=== PATIENT | male | born 1965 | race Caucasian/White ===

== ENCOUNTER 2019-12-19 12:27 | Inpatient (IN) | payer OTHER, SELFPAY ==
[2019-12-19] VITALS (9 sets, daily range): BP systolic 153–178; BP diastolic 86–108; PULSE 64–90; RESP 17–20; TEMP 36.5–36.8; O2SAT 91–96; BMI 50.8
--- NOTE | ~2019-12-19 | US_ITS ---
EXAMINATION: US venous doppler LE EXAM DATE: 12/20/2019 15:14 INDICATION: DVT. TECHNIQUE: Multiple grayscale, color flow and Doppler images of the lower extremity deep venous syste ms bilaterally were obtained and reviewed. Comparison is made to prior examination from 11/16/2018. FINDINGS: RIGHT SIDE Common femoral: -------- Normal. Profunda femoral: ------- Normal. Femoral: Normal. Popliteal: Thrombosed. Posterior tibial: --------- Normal. Peroneal: Normal. Gastrocnemius: Not visualized. Soleus: Not visualized. Greater saphenous: ----- Normal. Lesser saphenous: ------ Not visualized. LEFT SIDE Common femoral: -------- Normal. Profunda femoral: ------- Normal. Femoral: Normal. Popliteal: Normal. Posterior tibial: --------- Normal. Peroneal: Normal. Gastrocnemius: Not visualized. Soleus: Not visualized. Greater saphenous: ----- Normal. Lesser saphenous: ------ Not visualized. IMPRESSION: 1. Positive for right popliteal DVT. 2. No left DVT. I discussed DVT with Nikki Walton PA-C at 12/20/2019 15:17 CDT . Reviewed, dictated and finalized at location B.
--- NOTE | ~2019-12-19 | CT_ITS ---
EXAMINATION: CTA chest PE protocol DATE: 12/21/2019 11:42 INDICATION: Deep venous thrombosis. Exacerbation of congestive heart failure TECHNIQUE: Computed tomography angiography (CTA) of the chest was performed with 100 mL Omnipaque-350 intravenous contrast timed to evaluate the pulmonary arteries. Coronal maximum intensity projection 3D-reconstructions were created by the technologist. Automated exposure control and iterative reconst ruction technique were employed. Exam dose: 887.11 mGy-cm total exam DLP. COMPARISON: 12/18/[address] chest with IV contrast FINDINGS: There is diagnostic contrast enhancement of the pulmonary arteries and no evidence of pulmo nary embolism. No thoracic aortic aneurysm or dissection is detected. No hilar or mediastinal mass lesion or lymphadenopathy. Cardiomegaly. No pericardial or pleural effusion. No pulmonary infiltrate or consolidation. Small benign-appearing fissural nodes along the left greater fissure. Small calcified pulmonary granuloma, left lower lobe. Calcified splenic granulomas. IMPRESSION: No evidence of pulmonary embolism. Cardiomegaly Reviewed, dictated and finalized at Location [facility]. Reviewed, dictated and finalized at location A.
--- NOTE | ~2019-12-19 | XR_ITS ---
EXAMINATION: XR chest 2V DATE: 12/19/2019 12:55 INDICATION: Dyspnea on exertion. TECHNIQUE: Frontal and lateral views of the chest were obtained. COMPARISON: Chest CT 11/17/2018, chest 2 views 11/16/2018 FINDINGS: There is no pneumonia, pleural effusion, or pneumothorax cardiomegaly is noted. Calcified r ight hilar lymph nodes are consistent with old granulomatous disease. IMPRESSION: 1. Cardiomegaly. Reviewed, dictated and finalized at location A. IMPRESSION: 1. Cardiomegaly.
--- NOTE | 2019-12-19 12:44 | ECG_ITS ---
Measurements Intervals [employer] Rate: 82 P: 33 MO: 160 QRS: -30 QRSD: 92 T: 35 QT: 378 QTc: 442 Interpretive Statements SINUS RHYTHM POSSIBLE LEFT ATRIAL ENLARGEMENT INFERIOR INFARCT, AGE INDETERMINATE ANTEROSEPTAL INFARCT, AGE INDETERMINATE BASELINE ARTIFACT- I, III, AVR, AVL, AVF ABNORMAL ECG Electronically Signed On 12-19-2019 13:02:49 CDT by Vinny Mclaughlin D.O.
--- NOTE | 2019-12-19 12:44 | ED.GENADULT ---
HPI - General Adult General Chief complaint: Shortness of Breath/Dyspnea Stated complaint: sent by manager database administration Time Seen by Provider: 12/19/19 12:40 Source: patient Mode of arrival: ambulatory Limitations: no limitations History of Present Illness HPI narrative: Pt is a 54 y/o male who presents to the ED, secondary to his manager database administration recommending he come to the ED yesterday. Pt saw his manager database administration yesterday and was told that he had fluid in his lungs and to come to the ED. Pt was unable to come yesterday so he came today. Pt reports generalized swelling, but denies CP or SOB. He does not know the name of his manager database administration. MD complaint: [facility] recommendation Onset (ago): day(s) (yesterday) Associated symptoms: other (swelling) Treatments prior to arrival: none Related Data Home Medications Medication Instructions Recorded Confirmed hydrochlorothiazide 12/19/19 lisinopril 12/19/19 metoprolol tartrate 12/19/19 Allergies Allergy/AdvReac Type Severity Reaction Status Date / Time No Known Allergies Allergy Unverified 11/16/18 14:08 Review of Systems Review of Systems: All systems reviewed & are unremarkable except as noted in HPI and below Cardiovascular: Cardiovascular: Denies chest pain and Reports edema Respiratory: Respiratory: Denies dyspnea PMFSH Past Medical History Medical History (Updated 12/19/19 @ 14:50 by Marcus Madrid DO) Back injury CHF (congestive heart failure) High cholesterol HTN (hypertension) Nasal fracture Surgical History Surgical History (Updated 12/19/19 @ 12:57 by Von Mcgovern) No significant past surgical history Social History Social History (Updated 12/19/19 @ 12:57 by Von Mcgovern) Smoking packs per day: 1 Smoking cigarettes per day: 20.0 Years smoked: 30 Smoking pack-years: 30.00 Gender identity (if verbalized by the patient): Male Exam Narrative: Exam Narrative: APPEARANCE: No acute distress, nontoxic, resting in bed EYES: EOMI HEENT: Normocephalic, atraumatic, OMM RESPIRATORY: No respiratory distress Clear to auscultation bilaterally with no rhonchi wheezing or rales. CARDIOVASCULAR: Regular rate and rhythm without murmurs rubs or gallops. ABDOMINAL: Soft, nontender, nondistended, no rebound or guarding MUSCULOSKELETAl: Moves all extremities. No clubbing, cyanosis 4+ edema the bilateral lower extremities NEURO: Awake and alert. Following commands, speech normal, no focal deficits SKIN:: Warm, dry. No rashes lesions or abrasions PSYCHIATRIC: Normal affect/mood, Course Course Emergency Course: Discussed with patient and family results of workup and diagnosis. Discussed need for admission. Patient and family understand and agree to current treatment plan Consultations Consultation #1: Discussed case with LALIT Turner for the hospitalist. Accepted admission. Date: 12/19/19 Time: 14:30 Vital Signs Vital signs: Vital Signs Temperature 97.9 F 12/19/19 12:37 Pulse Rate 88 12/19/19 12:37 Respiratory Rate 18 12/19/19 12:37 Blood Pressure 153/99 H 12/19/19 12:37 Pulse Oximetry 95 12/19/19 12:37 Temperature 97.9 F 12/19/19 12:37 Pulse Rate 90 12/19/19 12:37 Respiratory Rate 18 12/19/19 12:37 Blood Pressure 153/99 H 12/19/19 12:37 Pulse Oximetry 95 12/19/19 12:37 Medical Decision Making Vital Signs Vital Signs: Vital Signs Temperature 97.9 F 12/19/19 12:37 Pulse Rate 88 12/19/19 12:37 Respiratory Rate 18 12/19/19 12:37 Blood Pressure 153/99 H 12/19/19 12:37 Pulse Oximetry 95 12/19/19 12:37 Temperature 97.9 F 12/19/19 12:37 Pulse Rate 90 12/19/19 12:37 Respiratory Rate 18 12/19/19 12:37 Blood Pressure 153/99 H 12/19/19 12:37 Pulse Oximetry 95 12/19/19 12:37 Lab Data Result diagrams: 12/19/19 13:18 12/19/19 13:18 Labs: Lab Results 12/19/19 12/19/19 12/19/19 Range/Units 13:18 13:18 14:32 WBC 9.6 (4.5-10.0)
[2019-12-19 13:25] LABS: Basophils Absolute Auto 0.1 K/mm3 (0.0-0.1); Basophils Percent Auto 0.6 % (0.2-1.2); Eosinophils Absolute Auto 0.1 K/mm3 (0-0.3); Hematocrit 56.1 % (42.0-52.0); Hemoglobin 17.5 g/dL (14.0-18.0); Immature Granulocyte Absolute 0.02 K/mm3 (0.00-0.031); Immature Granulocyte Percent A 0.2 % (0-0.5); Lymphocytes Absolute Auto 1.09 K/mm3 (0.9-3.2); Lymphocytes Percent Auto 11.3 % (18.3-44.2); Mean Corpuscular HGB Conc 31.2 g/dl (32-36); Mean Corpuscular Hemoglobin 29.2 pg (26-34); Mean Corpuscular Volume 93.5 fl (80-100); Mean Platelet Volume 11.3 fl (7.4-10.4); Monocytes Absolute Auto 0.9 K/mm3 (0.1-0.6); Monocytes Percent Auto 9.2 % (2.6-8.5); Neutrophils Absolute Auto 7.5 K/mm3 (1.3-6.7); Neutrophils Percent Auto 77.7 % (45.5-73.1); Platelet Count Result 250 k/mm3 (150-375); Red Cell Distribution Width 15.6 % (11.5-14.5); White Blood Count 9.6 K/mm3 (4.5-10.0)
[2019-12-19 13:38] LABS: Blood Urea Nitrogen 22 mg/dL (9-20); Calcium 9.2 mg/dL (8.4-10.2); Carbon Dioxide 34 mmol/L (22-30); Chloride 98 mmol/L (98-107); Estimated CRCL calculation 155 ml/min; Estimated Glomerular Filt Rate > 60; Glucose 96 mg/dL (75-110); Potassium 4.1 mmol/L (3.4-5.0); Sodium 138 mmol/L (137-145)
[2019-12-19 13:51] LABS: NT Pro B Type Natriuretic Pept 1080 PG/ML (5-100)
[2019-12-19] MEDS: ASPIRIN 81 MG CHEWABLE TABLET 324 MG PO (13:57)
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
[2019-12-19 14:47] LABS: INR 1.1; Prothrombin Time 13.8 Seconds (11.1-14.7)
[2019-12-19 14:48] LABS: Partial Thromboplastin Time 25.7 SECONDS (22.3-36.8)
[2019-12-19] MEDS: FUROSEMIDE INJ 40 MG/4 ML VIAL IV PUSH (14:55)
--- NOTE | 2019-12-19 17:33 | ADMGEN ---
This patient, Jb Gamboa, was admitted to IMU Room 202-. Patient/family oriented to hospital policies and general routines including ID bracelet, bed and alarms, visiting hours, pain management, procedures, bathroom and other care routines, personal items, smoking policy, room service/diet, and visiting hours. Valuables list has been completed. Information on how to activate the Rapid Response Team has been discussed. Patient/Family are encouraged to report perceived risks to care and to ask questions if they do not understand what they are told or what they should do.
[2019-12-19 18:43] LABS: Troponin I 0.038 ng/mL (0.000-0.034)
[2019-12-19 21:24] LABS: Troponin I 0.034 ng/mL (0.000-0.034)
[2019-12-20] VITALS (17 sets, daily range): BP systolic 134–161; BP diastolic 57–109; PULSE 62–86; RESP 16–25; TEMP 36.1–36.7; O2SAT 90–95
[2019-12-20] MEDS: NICOTINE (*PBKC) 21 MG PATCH 1 PATCH TRANSDERM ×2 (01:00→09:00)
[2019-12-20 04:41] LABS: Basophils Absolute Auto 0.1 K/mm3 (0.0-0.1); Eosinophils Absolute Auto 0.2 K/mm3 (0-0.3); Eosinophils Percent Auto 1.7 % (0-4.4); Hematocrit 56.3 % (42.0-52.0); Hemoglobin 17.8 g/dL (14.0-18.0); Immature Granulocyte Absolute 0.11 K/mm3 (0.00-0.031); Immature Granulocyte Percent A 1.3 % (0-0.5); Lymphocytes Absolute Auto 1.32 K/mm3 (0.9-3.2); Lymphocytes Percent Auto 15.2 % (18.3-44.2); Mean Corpuscular HGB Conc 31.6 g/dl (32-36); Mean Corpuscular Hemoglobin 28.9 pg (26-34); Mean Corpuscular Volume 91.5 fl (80-100); Mean Platelet Volume 11.6 fl (7.4-10.4); Monocytes Percent Auto 11.2 % (2.6-8.5); Neutrophils Percent Auto 69.6 % (45.5-73.1); Nucleated Red Blood Cells Absolute Auto 0.1 K/mm3 (0.0-0.012); Nucleated Red Blood Cells Perc 0.8 % (0.0-0.2); Platelet Count Result 257 k/mm3 (150-375); Red Blood Count 6.15 M/mm3 (4.6-6.20); Red Cell Distribution Width 16.4 % (11.5-14.5); White Blood Count 8.7 K/mm3 (4.5-10.0)
[2019-12-20] MEDS: METOPROLOL TARTRATE 25 MG TABLET PO ×3 (05:11→16:51)
[2019-12-20 06:00] LABS: LDL Cholesterol Direct 126 mg/dL
[2019-12-20 06:03] LABS: Alanine Aminotransferase 46 U/L (4-50); Albumin Level 3.8 g/dL (3.5-5.1); Alkaline Phosphatase 91 U/L (38-126); Aspartate Amino Transferase 45 U/L (17-59); Blood Urea Nitrogen 22 mg/dL (9-20); Calcium 9.2 mg/dL (8.4-10.2); Carbon Dioxide 32 mmol/L (22-30); Chloride 98 mmol/L (98-107); Cholesterol 172 mg/dL (0-200); Estimated CRCL calculation 119 ml/min; Estimated Glomerular Filt Rate > 60; Glucose 91 mg/dL (75-110); HDL Direct 28 mg/dL; Potassium 4.5 mmol/L (3.4-5.0); Sodium 135 mmol/L (137-145); Triglycerides 141 mg/dL (<150)
[2019-12-20] MEDS: FUROSEMIDE INJ 40 MG/4 ML VIAL IV PUSH ×2 (08:58→16:51)
[2019-12-20] MEDS: ENOXAPARIN 40 MG/0.4 ML SYRINGE SUB-Q (08:58)
[2019-12-20] MEDS: hydroCHLOROthiazide 12.5 MG CAPSULE PO (08:59)
[2019-12-20] MEDS: lisinopriL 20 MG TABLET 40 MG PO (08:59)
--- NOTE | 2019-12-20 10:21 | PM.IMPN ---
Progress Note: A&P Assessment and Plan (1) Congestive heart failure: Qualifiers: Heart failure chronicity: acute Heart failure type: diastolic Qualified Code(s): I50.31 - Acute diastolic (congestive) heart failure Code(s): I50.9 - Heart failure, unspecified Status: Acute Assessment and Plan: Acute on chronic diastolic CHF with significant lower extremity edema. Continue diuresis with IV Lasix BID, monitor fluid status closely. Monitor electrolytes. [facility] who noted he recently had echocardiogram this week so we will not repeat today; will review report once faxed from the office. (2) DVT (deep venous thrombosis): Qualifiers: DVT location: lower extremity Affected thrombotic vein of extremity: popliteal Chronicity: acute Laterality: right Qualified Code(s): I82.431 - Acute embolism and thrombosis of right popliteal vein Code(s): I82.409 - Acute embolism and thrombosis of unspecified deep veins of unspecified lower extremity Status: Acute Assessment and Plan: Venous Doppler reveals right lower extremity popliteal DVT. Started on therapeutic dose of Lovenox. Will check with care coordination for pricing on NOAC. (3) Hypertension: Qualifiers: Hypertension type: essential hypertension Qualified Code(s): I10 - Essential (primary) hypertension Code(s): I10 - Essential (primary) hypertension Status: Chronic Assessment and Plan: Elevated blood pressures not at goal. May improve with diuresis. His home metoprolol was doubled. Unsure if he has been taking his medications directly (says he was taking metoprolol once daily instead of BID). Continue lisinopril, HCTZ, and metoprolol and monitor BPs. (4) Elevated troponin: Code(s): R79.89 - Other specified abnormal findings of blood chemistry Status: Acute Assessment and Plan: Troponin mildly elevated, flat profile. Stable, no chest pain. No ACS suspected. Will review echocardiogram results requested. (5) Tobacco dependence: Code(s): F17.200 - Nicotine dependence, unspecified, uncomplicated Status: Chronic Assessment and Plan: Educated on smoking cessation. Subjective Date/time seen: 12/20/19 0900 Interval history: Mr. Gamboa is a 54yo M admitted for CHF exacerbation. 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 He reports his legs have been this swollen for 1 month. He denies missing any doses of his medications. He denies any chest pain or feeling short of breath. He denies nausea or vomiting. Edit: Contacted [facility] office who tells me he last saw Dr Garcia 11/28/19, was not seen this week. Patient may have been at PCPs office? Dr Garcia's office faxing last office note. Review of Systems Review of Systems: Narrative: Twelve systems were reviewed with pertinent positives and negatives as per HPI. Exam Narrative: Exam Narrative: General: Obese male resting in bed in no acute distress. HEENT: Normocephalic, EOMI, oral mucosa tacky. Cardiovascular: Rate and rhythm regular. Respiratory: Diffuse coarse expiratory breath sounds without crackles; Respirations even and nonlabored. Abdomen: Soft, protuberant, non-tender, bowel sounds present. Extremities: Peripheral pulses intact. 2 to 3+ pitting woody edema to bilateral lower extremities, erythematous, skin is dry. Neuro: No focal neurological deficits. Alert and oriented. Objective Data Vital Signs Vital Signs: Last Vital Signs Temp 97.7 F 12/20/19 08:54 Pulse 86 12/20/19 08:59 Resp 24 H 12/20/19 08:54 BP 134/57 L 12/20/19 08:54 Pulse Ox 92 12/20/19 08:54 Intake/Output Intake/Output: Intake & Output 12/17/19 12/18/19
--- NOTE | 2019-12-20 19:43 | PC.NURSE ---
This patient, Jb Gamboa, was transferred to [facility] on 12/20/19 at 1930. Personal belongings sent with patient. Belongings list checked and signed with receiving . Report given to ALEXANDER Servin. Appropriate documentation sent with patient.
[2019-12-20] MEDS: ENOXAPARIN 80 MG/0.8 ML SYRINGE 138 MG SUB-Q (21:51)
--- NOTE | 2019-12-20 22:54 | PCRCNOTE ---
PT REFUSED APNEA LINK. PT STATES THAT HE HAD A SLEEP STUDY LAST YEAR AND HE WON'T DO THIS ONE. RN SHANNAN CROOKS NOTIFIED, ORDER CANCELLED
[2019-12-21] VITALS (12 sets, daily range): BP systolic 114–150; BP diastolic 67–94; PULSE 66–94; RESP 16–20; TEMP 36.1–36.4; O2SAT 92–96
[2019-12-21 07:03] LABS: Blood Urea Nitrogen 24 mg/dL (9-20); Calcium 9.3 mg/dL (8.4-10.2); Carbon Dioxide 30 mmol/L (22-30); Chloride 98 mmol/L (98-107); Estimated CRCL calculation 117 ml/min; Estimated Glomerular Filt Rate > 60; Glucose 84 mg/dL (75-110); Potassium 4.5 mmol/L (3.4-5.0); Sodium 134 mmol/L (137-145)
[2019-12-21] MEDS: METOPROLOL TARTRATE 25 MG TABLET PO ×2 (08:17→16:32)
[2019-12-21] MEDS: lisinopriL 20 MG TABLET 40 MG PO (08:17)
[2019-12-21] MEDS: hydroCHLOROthiazide 12.5 MG CAPSULE PO (08:17)
[2019-12-21] MEDS: FUROSEMIDE INJ 40 MG/4 ML VIAL IV PUSH ×2 (08:17→16:32)
[2019-12-21] MEDS: ENOXAPARIN 80 MG/0.8 ML SYRINGE 138 MG SUB-Q (08:18)
[2019-12-21] MEDS: NICOTINE (*PBKC) 21 MG PATCH 1 PATCH TRANSDERM (08:19)
--- NOTE | 2019-12-21 11:00 | PM.IMPN ---
Progress Note: A&P Assessment and Plan (1) Congestive heart failure: Qualifiers: Heart failure chronicity: acute Heart failure type: diastolic Qualified Code(s): I50.31 - Acute diastolic (congestive) heart failure Code(s): I50.9 - Heart failure, unspecified Status: Acute Assessment and Plan: Acute on chronic diastolic CHF with significant lower extremity edema. Improving, continue diuresis with IV Lasix BID, monitor fluid status closely. Monitor electrolytes. Echocardiogram from last week note. Recommend he follow up with Dr Garcia as instructed. CHF teaching. Low sodium diet and fluid restriction. Patient has poor insight regarding his medical conditions despite repeat teaching. Echocardiogram 12/18/19: SUMMARY: Normal left ventricular systolic function. No focal wall motion abnormalities. Normal left ventricular size. Moderate concentric left ventricular hypertrophy. Impaired diastolic relaxation grade I. EF visually estimated 70-75%. Severe enlargement of right ventricle. Moderate right ventricular hypokinesis. Mild enlargement of left atrium. Peak gradient of 15.0 mmHg. Mean gradient of 9.0 mm Hg. Valve area of 2.47 cm2. Probable trileaflet aortic valve, although not all leaflets are visualized. Mild aortic valve regurgitation. Severe pulmonary hypertension based on right ventricular systolic pressure. Estimated peak RVSP is 70 mm Hg. Mild tricuspid regurgitation. Normal sinus rhythm. (2) DVT (deep venous thrombosis): Qualifiers: Affected thrombotic vein of extremity: popliteal Chronicity: acute DVT location: lower extremity Laterality: right Qualified Code(s): I82.431 - Acute embolism and thrombosis of right popliteal vein Code(s): I82.409 - Acute embolism and thrombosis of unspecified deep veins of unspecified lower extremity Status: Acute Assessment and Plan: Venous Doppler reveals right lower extremity popliteal DVT. Started on therapeutic dose of Lovenox. Xarelto approved - will start tonight and may be able to discharge in AM. CTA chest negative for PE. (3) Hypertension: Qualifiers: Hypertension type: essential hypertension Qualified Code(s): I10 - Essential (primary) hypertension Code(s): I10 - Essential (primary) hypertension Status: Chronic Assessment and Plan: Elevated BPs improved today, last 138/67. His home metoprolol was doubled. Unsure if he has been taking his medications directly (says he was taking metoprolol once daily instead of BID). Continue lisinopril, HCTZ, and metoprolol and monitor BPs. (4) Elevated troponin: Code(s): R79.89 - Other specified abnormal findings of blood chemistry Status: Acute Assessment and Plan: Troponin mildly elevated, flat profile. Stable, denies chest pain. No ACS suspected. (5) Tobacco dependence: Code(s): F17.200 - Nicotine dependence, unspecified, uncomplicated Status: Chronic Assessment and Plan: Educated on smoking cessation. Subjective Date/time seen: 12/21/19 0915 Interval history: Mr. Gamboa is a 54yo M admitted for acute right leg DVT and CHF exacerbation. He reports his legs have been this swollen for 1 month. He denies missing any doses of his medications. He denies any chest pain or feeling short of breath. He denies nausea or vomiting. Detailed discussion held with patient regarding his DVT and care coordination checking on Xarelto pricing. If he should need to be started on Coumadin due to insurance purposes, he will need to stay in the hospital until INR is therapeutic. Patient is insistent on discharging today. He is very concerned that he needs to shower and get clean clothes from his house and return. Discussed he will not be able to go home and return and ensured th
[2019-12-21] MEDS: RIVAROXABAN 15 MG TABLET PO (18:49)
--- NOTE | 2019-12-21 19:44 | PC.NURSE ---
Pt is demanding we discontinue the heart monitor, stated its been 3 days wearing it . He is stating the monitor is annoying him, and there is no reason for him to still need it. Even after discussion of purpose of the heart monitor the pt still demands I take it off. I told the pt I would chart his refusal and inform the night doctor.
[2019-12-22] VITALS: PULSE 65
[2019-12-22 04:00] VITALS: PULSE 86
[2019-12-22 05:41] LABS: Blood Urea Nitrogen 25 mg/dL (9-20); Calcium 9.2 mg/dL (8.4-10.2); Carbon Dioxide > 40 mmol/L (22-30); Chloride 93 mmol/L (98-107); Estimated CRCL calculation 117 ml/min; Estimated Glomerular Filt Rate > 60; Glucose 94 mg/dL (75-110); Magnesium 1.9 mg/dL (1.6-2.3); Sodium 136 mmol/L (137-145)
[2019-12-22 06:00] VITALS: BP 146/99; PULSE 89; RESP 16; TEMP 36.2; O2SAT 92
[2019-12-22] MEDS: NICOTINE (*PBKC) 21 MG PATCH 1 PATCH TRANSDERM (08:59)
[2019-12-22 09:00] VITALS: PULSE 78
[2019-12-22] MEDS: RIVAROXABAN 15 MG TABLET PO (09:00)
[2019-12-22] MEDS: FUROSEMIDE INJ 40 MG/4 ML VIAL IV PUSH (09:00)
[2019-12-22] MEDS: hydroCHLOROthiazide 12.5 MG CAPSULE PO (09:00)
[2019-12-22] MEDS: METOPROLOL TARTRATE 25 MG TABLET PO (09:00)
[2019-12-22] MEDS: lisinopriL 20 MG TABLET 40 MG PO (09:01)
--- NOTE | 2019-12-22 14:37 | PM.DS ---
DS: Diagnosis Admitting Diagnosis Admitting Diagnosis: Heart failure, unspecified Discharge Diagnosis (1) Congestive heart failure: Qualifiers: Heart failure chronicity: acute Heart failure type: diastolic Qualified Code(s): I50.31 - Acute diastolic (congestive) heart failure Code(s): I50.9 - Heart failure, unspecified Status: Acute Assessment and Plan: Date of Service 12/22/19: Mr. Gamboa is a 54yo M with morbid obesity, congestive heart failure and hypertension who presented to the emergency department for evaluation of lower extremity swelling and increased shortness of breath. He recently had outpatient echocardiogram performed, results noted below, and saw cardiology, Dr Garcia 11/28/19. He was noted to have significant bilateral lower extremity edema on arrival. He was treated for acute on chronic diastolic CHF and diuresed with IV lasix. Venous dopplers of lower extremities revealed a deep venous thrombosis to his right popliteal vein and he was started on therapeutic Lovenox. Case management checked insurance approval for Xarelto and he was transitioned to Xarelto 12/21/19. He had mildly elevated troponins with a flat profile 0.04 - 0.038 - 0.034. He had no chest pain, ACS not suspected. CTA chest showed no evidence of pulmonary embolism. His blood pressures were elevated on arrival but improved once his home antihypertensives were resumed - lisinopril, HCTZ, and metoprolol. He received CHF teaching and was educated on a low sodium diet. It is felt the patient has poor insight regarding his medical conditions despite repeat teaching. Dr Garcia's office note from 11/28/19 suggests 6 week follow up, and this was reiterated to the patient. He was discharged with oral furosemide 20mg daily and Xarelto. He was hemodynamically stable for discharge 12/22/19 and instructed to follow up with Dr Garcia and PCP. Repeat BMP in 1 week since Lasix was added to monitor electrolytes and renal function. Acute on chronic diastolic CHF with significant lower extremity edema. Improved with diuresis with 40mg IV Lasix BID while monitoring electrolytes. Discharged with 20mg daily oral Lasix. Echocardiogram from last week noted. Recommend he follow up with Dr Garcia as instructed. CHF teaching. Low sodium diet and fluid restriction. Echocardiogram 12/18/19: SUMMARY: Normal left ventricular systolic function. No focal wall motion abnormalities. Normal left ventricular size. Moderate concentric left ventricular hypertrophy. Impaired diastolic relaxation grade I. EF visually estimated 70-75%. Severe enlargement of right ventricle. Moderate right ventricular hypokinesis. Mild enlargement of left atrium. Peak gradient of 15.0 mmHg. Mean gradient of 9.0 mm Hg. Valve area of 2.47 cm2. Probable trileaflet aortic valve, although not all leaflets are visualized. Mild aortic valve regurgitation. Severe pulmonary hypertension based on right ventricular systolic pressure. Estimated peak RVSP is 70 mm Hg. Mild tricuspid regurgitation. Normal sinus rhythm. (2) DVT (deep venous thrombosis): Qualifiers: Affected thrombotic vein of extremity: popliteal Chronicity: acute DVT location: lower extremity Laterality: right Qualified Code(s): I82.431 - Acute embolism and thrombosis of right popliteal vein Code(s): I82.409 - Acute embolism and thrombosis of unspecified deep veins of unspecified lower extremity Status: Acute Assessment and Plan: Venous Doppler reveals right lower extremity popliteal DVT. Started on therapeutic dose of Lovenox and transititioned to Xarelto. CTA chest negative for PE. (3) Hypertension: Qualifiers: Hypertension type: essential hypertension Qualified Code(s): I10 - Essential (primary) hypertension Code(s): I10 - Essential (primary) hypertension
== END 2019-12-22 13:18 | disposition home or self-care (01) | DRG 194 ==
LOC: ANHED 14:50 → ANHIMU 16:11 → ANH3MED 12-20 20:09
PROVIDERS: Physician Assistant; Admitting Provider Hospitalist; Emergency Provider Emergency Medicine; Visit Provider Internal Medicine
DX: I11.0 Hypertensive heart disease with heart failure (principal); I50.33 Acute on chronic diastolic (congestive) heart failure; I82.431 Acute embolism and thrombosis of right popliteal vein; F17.200 Nicotine dependence, unspecified, uncomplicated; E78.5 Hyperlipidemia, unspecified; R79.89 Other specified abnormal findings of blood chemistry
CPT/HCPCS: 36415; 71046; 71275; 80048; 80061; 80076; 83735; 83880; 84484; 85025; 85610; 85730; 93005; 93970; 96372; 96374; 96376; 99285; A9270; G0378; G0379; J1650; J1940; Q9967

== ENCOUNTER → 2020-12-16 17:35 | Emergency (ER) | payer OTHER, SELFPAY ==
--- NOTE | ~2020-12-16 | XR_ITS ---
XR chest 1V portable 12/16/2020 18:52 Indication: Lower extremity swelling. CHF. Procedure: AP view of the chest Comparison: 12/19/2019 Findings: Moderate cardiomegaly. No focal air space disease, pulmonary edema, pleural effusion or navarro pected pneumothorax. No acute osseous abnormality. Impression: 1: No acute cardiopulmonary disease. Reviewed, dictated and finalized at location A. L FRAMER Impression: 1: No acute cardiopulmonary disease.
[2020-12-16 17:44] VITALS: BP 153/111; PULSE 104; RESP 18; TEMP 35.4; O2SAT 92
--- NOTE | 2020-12-16 19:36 | PC.NURSE ---
Pt states he will come back tomorrow to be seen
== END | disposition left against medical advice (07) ==
PROVIDERS: PCP Nurse Practitioner Family
DX: M79.89 Other specified soft tissue disorders (principal); I50.9 Heart failure, unspecified
CPT/HCPCS: 71045

== ENCOUNTER 2020-12-20 01:45 | Emergency (ER) | payer OTHER, SELFPAY ==
--- NOTE | 2020-12-20 01:59 | ECG_ITS ---
Measurements Intervals [place] Rate: 102 P: 62 [place]: 158 QRS: -50 QRSD: 102 T: 34 QT: 348 QTc: 455 Interpretive Statements SINUS TACHYCARDIA POSSIBLE LEFT ATRIAL ENLARGEMENT LEFT AXIS DEVIATION INFERIOR INFARCT, AGE INDETERMINATE ANTEROSEPTAL INFARCT, AGE INDETERMINATE ABNORMAL ECG Electronically Signed On 12-20-2020 7:11:12 [employer] by Vinny Mclaughlin D.O.
[2020-12-20 02:04] VITALS: BP 189/110; PULSE 103; RESP 22; TEMP 36.6; O2SAT 91
[2020-12-20] MEDS: HYDROcodone/acetaminophen (*CRX) 5-325 MG TABLET 1 TAB PO (02:19)
[2020-12-20 02:41] LABS: Basophils Absolute Auto 0.1 K/mm3 (0.0-0.1); Basophils Percent Auto 0.9 % (0.2-1.2); Eosinophils Absolute Auto 0.1 K/mm3 (0-0.3); Eosinophils Percent Auto 1.5 % (0-4.4); Immature Granulocyte Absolute 0.02 K/mm3 (0.00-0.031); Immature Granulocyte Percent A 0.3 % (0-0.5); Lymphocytes Absolute Auto 1.21 K/mm3 (0.9-3.2); Lymphocytes Percent Auto 15.5 % (18.3-44.2); Mean Corpuscular HGB Conc 31.6 g/dl (32-36); Mean Corpuscular Hemoglobin 30.3 pg (26-34); Mean Platelet Volume 10.8 fl (7.4-10.4); Monocytes Absolute Auto 0.9 K/mm3 (0.1-0.6); Monocytes Percent Auto 11.2 % (2.6-8.5); Neutrophils Absolute Auto 5.5 K/mm3 (1.3-6.7); Neutrophils Percent Auto 70.6 % (45.5-73.1); Platelet Count Result 277 k/mm3 (150-375); Red Blood Count 5.94 M/mm3 (4.6-6.20); Red Cell Distribution Width 15.6 % (11.5-14.5); White Blood Count 7.8 K/mm3 (4.5-10.0)
[2020-12-20 02:53] LABS: Alanine Aminotransferase 24 U/L (4-50); Albumin Level 3.6 g/dL (3.5-5.1); Alkaline Phosphatase 99 U/L (38-126); Anion Gap 1 mmol/L (8-16); Aspartate Amino Transferase 29 U/L (17-59); Bilirubin,Total 0.5 mg/dL (0.2-1.3); Blood Urea Nitrogen 26 mg/dL (9-20); Calcium 8.9 mg/dL (8.4-10.2); Carbon Dioxide 39 mmol/L (22-30); Chloride 101 mmol/L (98-107); Estimated CRCL calculation 99 ml/min; Estimated Glomerular Filt Rate > 60; Glucose 135 mg/dL (75-110); Potassium 4.2 mmol/L (3.4-5.0); Sodium 141 mmol/L (137-145)
[2020-12-20 02:54] LABS: Lactic Acid Reflex 1.8 mmol/L (0.7-2.1)
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
[2020-12-20 04:31] LABS: NT Pro B Type Natriuretic Pept 1490 PG/ML (5-100); Troponin I 0.053 ng/mL (0.000-0.034)
[2020-12-20 04:38] VITALS: BP 184/101; PULSE 96; RESP 18; O2SAT 92
[2020-12-20] MEDS: FUROSEMIDE INJ 40 MG/4 ML VIAL IV PUSH (05:00)
--- NOTE | 2020-12-20 05:06 | PC.NURSE ---
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
[2020-12-20 05:26] LABS: Troponin I 0.061 ng/mL (0.000-0.034)
== END 2020-12-20 05:56 | disposition left against medical advice (07) ==
PROVIDERS: Emergency Provider Emergency Medicine; PCP Nurse Practitioner Family
DX: L03.116 Cellulitis of left lower limb (principal); L03.115 Cellulitis of right lower limb; R60.9 Edema, unspecified; I50.30 Unspecified diastolic (congestive) heart failure; I11.0 Hypertensive heart disease with heart failure; E78.5 Hyperlipidemia, unspecified; F17.210 Nicotine dependence, cigarettes, uncomplicated
CPT/HCPCS: 36415; 80053; 83605; 83880; 84484; 85025; 93005; 96374; 99284; A9270; J1940

== ENCOUNTER 2020-12-22 19:26 | Inpatient (IN) | payer OTHER, SELFPAY ==
--- NOTE | ~2020-12-22 | XR_ITS ---
EXAMINATION: XR chest 1V portable DATE: 12/26/2020 05:44 INDICATION: Congestive heart failure. TECHNIQUE: A single frontal view of the chest was obtained. COMPARISON: Chest single view 12/25/2020 FINDINGS: Sensitivity is decreased by obesity. There are mild airspace opacities in the mid and lower lung zones. No pleural effusion or pneumothorax. Cardiomegaly is noted. A left upper extremity perip herally inserted central venous catheter (PICC) is seen with tip in the superior vena cava. IMPRESSION: 1. Worsened mild airspace opacities in the mid and lower lung zones, consistent with pulmonary edema versus pneumonia. 2. Cardiomegaly. Reviewed, dictated and finalized at location A.
--- NOTE | ~2020-12-22 | US_ITS ---
EXAMINATION: US venous doppler LE BI EXAM DATE: 12/23/2020 15:36 INDICATION: SINDY LE swelling, erythema edema. TECHNIQUE: Multiple grayscale, color flow and Doppler images of the lower extremity deep venous syste ms bilaterally were obtained and reviewed. Comparison is made to prior examination from 12/20/2019. FINDINGS: Right side: The right common femoral, femoral and profunda veins demonstrate normal color flow, respi ratory variation, augmentation and compressibility. Compressibility, color flow confirmed within the right popliteal, posterior tibial, and greater saphenous veins. Previously seen right-sided poplite al thrombus has resolved Left side: The left common femoral, femoral and profunda veins demonstrate normal color flow, respira tory variation, augmentation and compressibility. Compressibility, color flow confirmed within the l eft popliteal, posterior tibial, and greater saphenous veins. IMPRESSION: 1. No lower extremity deep venous thrombosis bilaterally. Reviewed, dictated and finalized at location A.
--- NOTE | ~2020-12-22 | XR_ITS ---
EXAMINATION: XR chest 1V portable DATE: 12/25/2020 05:40 INDICATION: Pulmonary edema. Pneumonia. TECHNIQUE: A single frontal view of the chest was obtained. COMPARISON: Chest single view 12/24/2020, chest CT 12/21/2019 FINDINGS: There is mild atelectasis in right lower lung zone. No pleural effusion or pneumothorax. Ca rdiomegaly is noted. A left upper extremity peripherally inserted central venous catheter (PICC) is s een with tip in the superior vena cava. IMPRESSION: 1. Mild atelectasis in right lower lung zone. 2. Cardiomegaly. Reviewed, dictated and finalized at location A.
--- NOTE | ~2020-12-22 | XR_ITS ---
EXAMINATION: XR chest 1V portable DATE: 12/22/2020 22:53 INDICATION: Fluid overload. TECHNIQUE: A single frontal view of the chest was obtained. COMPARISON: Chest single view 12/16/2020, chest CT 12/21/2019 FINDINGS: Sensitivity is decreased by obesity. There are mild airspace opacities in right lower lung zone and left mid and lower lung zones. No pleural effusion or pneumothorax. Cardiomegaly is noted. IMPRESSION: 1. Mild airspace opacities in right lower lung zone and left mid and lower lung zones, consistent wit h pulmonary edema versus pneumonia. 2. Cardiomegaly. Reviewed, dictated and finalized at location A. IMPRESSION: 1. Mild airspace opacities in right lower lung zone and left mid and lower lung zones, consistent with pulmonary edema versus pneumonia. 2. Cardiomegaly.
--- NOTE | ~2020-12-22 | XR_ITS ---
EXAMINATION: XR chest PICC line DATE: 12/23/2020 15:10 INDICATION: Central line placement. TECHNIQUE: A single frontal view of the chest was obtained. COMPARISON: Chest single view 12/22/2020, chest CT 12/21/2019 FINDINGS: There is no pneumonia, pleural effusion, or pneumothorax. Cardiomegaly is noted. Calcified right hilar and mediastinal lymph nodes are consistent with old granulomatous disease. A left upper e xtremity peripherally inserted central venous catheter (PICC) is seen with tip in superior vena cava. IMPRESSION: 1. PICC tip in superior vena cava. 2. Cardiomegaly. Reviewed, dictated and finalized at location A.
--- NOTE | ~2020-12-22 | US_ITS ---
EXAMINATION: US venous doppler E DATE: 12/30/2020 08:20 INDICATION: Left arm swelling TECHNIQUE: Boyer scale images with and without compression and Doppler images of the left upper extrem ity veins were obtained. COMPARISON: None. FINDINGS: The left internal jugular vein, subclavian vein, axillary vein, brachial veins, basilic vein, cephali c vein, radial vein, and ulnar vein are patent.] IMPRESSION: 1. Patent left upper extremity veins. No evidence of deep venous thrombosis. Reviewed, dictated and finalized at location A.
--- NOTE | ~2020-12-22 | XR_ITS ---
EXAMINATION: XR chest 1V portable DATE: 12/24/2020 06:06 INDICATION: Acute on chronic respiratory failure. TECHNIQUE: A single frontal view of the chest was obtained. COMPARISON: Chest single view 12/23/2020 FINDINGS: Sensitivity is decreased by obesity. There is no pneumonia, pleural effusion, or pneumothor ax. Cardiomegaly is noted. A left upper extremity peripherally inserted central venous catheter (PICC ) is seen with tip in the superior vena cava. IMPRESSION: 1. Cardiomegaly. Reviewed, dictated and finalized at location A. IMPRESSION: 1. Cardiomegaly.
[2020-12-22 19:30] VITALS: BP 215/137; PULSE 112; RESP 24; TEMP 36.6; O2SAT 88
--- NOTE | 2020-12-22 19:37 | ECG_ITS ---
Measurements Intervals [place] Rate: 113 P: 62 [place]: 166 QRS: 215 QRSD: 78 T: 59 QT: 306 QTc: 420 Interpretive Statements SINUS TACHYCARDIA POSSIBLE LEFT ATRIAL ENLARGEMENT ANTEROSEPTAL INFARCT, AGE INDETERMINATE CONSIDER INFERIOR INFARCT, AGE INDETERMINATE BASELINE ARTIFACT- I, II, III, AVR, AVL, AVF ABNORMAL ECG Electronically Signed On 12-22-2020 19:54:58 CDT by Vinny Mclaughlin D.O.
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
[2020-12-22 19:45] VITALS: PULSE 110; O2SAT 97
[2020-12-22] MEDS: ASPIRIN 81 MG CHEWABLE TABLET 324 MG PO (19:51)
[2020-12-22] MEDS: FUROSEMIDE INJ 40 MG/4 ML VIAL IV PUSH (19:51)
[2020-12-22 19:58] LABS: Basophils Absolute Auto 0.1 K/mm3 (0.0-0.1); Basophils Percent Auto 0.8 % (0.2-1.2); Eosinophils Absolute Auto 0.1 K/mm3 (0-0.3); Hematocrit 55.1 % (42.0-52.0); Hemoglobin 17.4 g/dL (14.0-18.0); Immature Granulocyte Absolute 0.04 K/mm3 (0.00-0.031); Immature Granulocyte Percent A 0.4 % (0-0.5); Lymphocytes Absolute Auto 1.13 K/mm3 (0.9-3.2); Lymphocytes Percent Auto 11.3 % (18.3-44.2); Mean Corpuscular HGB Conc 31.6 g/dl (32-36); Mean Corpuscular Hemoglobin 29.7 pg (26-34); Mean Platelet Volume 10.7 fl (7.4-10.4); Monocytes Absolute Auto 1.1 K/mm3 (0.1-0.6); Monocytes Percent Auto 11.2 % (2.6-8.5); Neutrophils Absolute Auto 7.6 K/mm3 (1.3-6.7); Neutrophils Percent Auto 75.3 % (45.5-73.1); Platelet Count Result 303 k/mm3 (150-375); Red Blood Count 5.86 M/mm3 (4.6-6.20); Red Cell Distribution Width 15.2 % (11.5-14.5)
[2020-12-22 20:00] VITALS: BP 188/109; PULSE 96; RESP 20; TEMP 36.6; O2SAT 98
[2020-12-22 20:07] LABS: INR 1.1; Prothrombin Time 14.6 Seconds (11.1-14.7)
[2020-12-22 20:08] LABS: Partial Thromboplastin Time 28.7 SECONDS (22.3-36.8)
[2020-12-22 20:09] LABS: Lactic Acid Reflex 2.1 mmol/L (0.7-2.1)
[2020-12-22 21:07] LABS: NT Pro B Type Natriuretic Pept 1300 PG/ML (5-100); Troponin I 0.063 ng/mL (0.000-0.034)
[2020-12-22 21:16] VITALS: BP 175/104; PULSE 95; RESP 16; TEMP 36.3; O2SAT 98
[2020-12-22] MEDS: HYDROcodone/acetaminophen (*CRX) 5-325 MG TABLET 1 TAB PO ×2 (21:40→23:05)
[2020-12-22] MEDS: diphenhydrAMINE HCl INJ 50 MG/ML VIAL 12.5 MG IV PUSH (21:41)
[2020-12-22 21:44] VITALS: O2SAT 94
[2020-12-22 21:44] LABS: Alanine Aminotransferase 31 U/L (4-50); Albumin Level 3.6 g/dL (3.5-5.1); Alkaline Phosphatase 105 U/L (38-126); Aspartate Amino Transferase 31 U/L (17-59); Bilirubin,Total 0.6 mg/dL (0.2-1.3); Blood Urea Nitrogen 27 mg/dL (9-20); Calcium 9.1 mg/dL (8.4-10.2); Carbon Dioxide > 40 mmol/L (22-30); Chloride 96 mmol/L (98-107); Estimated CRCL calculation 93 ml/min; Estimated Glomerular Filt Rate > 60; Glucose 87 mg/dL (75-110); Sodium 140 mmol/L (137-145)
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
[2020-12-22 22:56] LABS: Reflex Lactic Acid Yes or No Add Lactic
--- NOTE | 2020-12-22 23:06 | PC.NURSE ---
this rn went into room 1 to give pain medication, pt states if you dont get me upstairs in 5 minutes im walking out of here. im walking to my ca and driving home. this rn informed pt that admission orders are in and we are currently waiting on a bed for him. he states i dont care, you have 5 minutes. pt put all his clothes back in prior to this rn entering. when asked why he was fully clothed, he states he was cold. i informed the pt i would bring him some blankets and that he needs to put the hospital gown back on. pt refuses. notified.
[2020-12-22 23:30] LABS: Lactic Acid 1.4 mmol/L (0.7-2.1)
[2020-12-23] VITALS (29 sets, daily range): BP systolic 95–180; BP diastolic 57–110; PULSE 64–111; RESP 12–26; TEMP 36.4–38.3; O2SAT 91–100; BMI 55.3
--- NOTE | 2020-12-23 00:32 | ADMGEN ---
This patient, Jb Gamboa, was admitted to Medical Room 342-01. Patient/family oriented to hospital policies and general routines including ID bracelet, bed and alarms, visiting hours, pain management, procedures, bathroom and other care routines, personal items, smoking policy, room service/diet, and visiting hours. Information on how to activate the Rapid Response Team has been discussed. Patient/Family are encouraged to report perceived risks to care and to ask questions if they do not understand what they are told or what they should do.
[2020-12-23] MEDS: TOLNAFTATE 1% POWDER 45 GM BTL 1 APPLIC TOPICAL ×3 (00:48→20:06)
[2020-12-23] MEDS: hydrALAZINE HCL 20 MG/ML VIAL 10 MG IV PUSH (01:30)
[2020-12-23 02:52] LABS: Blood Urea Nitrogen 30 mg/dL (9-20); Calcium 9.2 mg/dL (8.4-10.2); Carbon Dioxide > 40 mmol/L (22-30); Chloride 95 mmol/L (98-107); Estimated CRCL calculation 100 ml/min; Estimated Glomerular Filt Rate > 60; Glucose 149 mg/dL (75-110); Magnesium 1.7 mg/dL (1.6-2.3); Potassium 4.1 mmol/L (3.4-5.0); Sodium 137 mmol/L (137-145)
[2020-12-23 04:25] LABS: Alveolar/Arterial O2 Gradient 66.5 mmHg; Base Excess ABG 7.7 mEq/l (+/-2.0); Fractional Inspired Oxygen 32 %; HCO3 ABG 36.7 mEq/l (22.0-26.0); Oxygen Content ABG 22.9 %vol (16.0-22.0); Oxygen Saturation ABG 95.3 % (95.0-100.0); PO2 ABG 82.2 mmHg (80.0-100.0); PO2 FiO2 Ratio Arterial Blood 2.57 %; Total Hemoglobin 18.1 g/dL (12.0-18.0); pH ABG 7.351 (7.350-7.450)
[2020-12-23] MEDS: HYDROcodone/acetaminophen (*CRX) 5-325 MG TABLET 1 TAB PO (04:25)
[2020-12-23 04:26] LABS: Device NASAL CANNULA; Modified Allen's Test Pass; PCO2 ABG 67.9 mmHg (35.0-45.0); Site Drawn LEFT RADIAL
[2020-12-23 05:12] LABS: Basophils Absolute Auto 0.1 K/mm3 (0.0-0.1); Basophils Percent Auto 0.6 % (0.2-1.2); Eosinophils Absolute Auto 0.1 K/mm3 (0-0.3); Eosinophils Percent Auto 0.6 % (0-4.4); Hematocrit 55.1 % (42.0-52.0); Hemoglobin 17.4 g/dL (14.0-18.0); Immature Granulocyte Absolute 0.04 K/mm3 (0.00-0.031); Immature Granulocyte Percent A 0.4 % (0-0.5); Lymphocytes Absolute Auto 0.58 K/mm3 (0.9-3.2); Lymphocytes Percent Auto 5.2 % (18.3-44.2); Mean Corpuscular HGB Conc 31.6 g/dl (32-36); Mean Corpuscular Hemoglobin 29.7 pg (26-34); Mean Platelet Volume 10.3 fl (7.4-10.4); Monocytes Absolute Auto 1.2 K/mm3 (0.1-0.6); Monocytes Percent Auto 11.1 % (2.6-8.5); Neutrophils Absolute Auto 9.1 K/mm3 (1.3-6.7); Neutrophils Percent Auto 82.1 % (45.5-73.1); Platelet Count Result 280 k/mm3 (150-375); Red Blood Count 5.86 M/mm3 (4.6-6.20); Red Cell Distribution Width 14.8 % (11.5-14.5); White Blood Count 11.1 K/mm3 (4.5-10.0)
[2020-12-23] MEDS: ENOXAPARIN 40 MG/0.4 ML SYRINGE SUB-Q (09:05)
[2020-12-23] MEDS: ASPIRIN 81 MG CHEWABLE TABLET PO (09:06)
[2020-12-23] MEDS: FUROSEMIDE INJ 40 MG/4 ML VIAL IV PUSH ×2 (09:06→20:06)
--- NOTE | 2020-12-23 10:37 | P.PNIM_ITS ---
Progress Note: A&P Assessment and Plan (1) Acute on chronic respiratory failure with hypoxia and hypercapnia: Code(s): J96.21 - Acute and chronic respiratory failure with hypoxia; J96.22 - Acute and chronic respiratory failure with hypercapnia <Nikki Walton PA-C - Last Filed: 12/23/20 22:54> Status: Acute <Nikki Walton PA-C - Last Filed: 12/23/20 22:54> Assessment and Plan: * With worsening lethargy and hypercapnia despite BiPAP therapy for 2 hrs. * Appreciate Dr Renee and Dr Martinez input. * BiPAP settings increased, moved to ICU. See HPI. * Test for COVID by PCR. D-dimer 0.61. <Nikki Walton PA-C - Last Filed: 12/23/20 22:54> (2) Congestive heart failure: Qualifiers: Heart failure chronicity: unspecified Heart failure type: unspecified Qualified Code(s): I50.9 - Heart failure, unspecified <Nikki Walton PA-C - Last Filed: 12/23/20 22:54> Code(s): I50.9 - Heart failure, unspecified <Nikki Walton PA-C - Last Filed: 12/23/20 22:54> Status: Acute <Nikki Walton PA-C - Last Filed: 12/23/20 22:54> Assessment and Plan: * Decompensated with generalized edema and acute on chronic SINDY lower extremity swelling. IV Lasix 40mg BID. Low sodium, fluid restricted diet. TSH within normal limits. * CXR last evening compared to XR 12/16/20 shows new SINDY airspace opacities pulmonary edema vs pneumonia. * Echocardiogram ordered. Continue beta blockade and GHAZALA-I. <Nikki Walton PA-C - Last Filed: 12/23/20 22:54> (3) Edema, peripheral: Code(s): R60.9 - Edema, unspecified <Nikki Walton PA-C - Last Filed: 12/23/20 22:54> Status: Acute <Nikki Walton PA-C - Last Filed: 12/23/20 22:54> Assessment and Plan: * Suspect related to sodium indiscretion. Continue aggressive IV lasix therapy. Monitor urine output and renal function. * Venous dopplers LE ordered. History of DVT leg last year. <Nikki Walton PA-C - Last Filed: 12/23/20 22:54> (4) Open leg wound: Qualifiers: Encounter type: initial encounter Laterality: bilateral Qualified Code(s): S81.801A - Unspecified open wound, right lower leg, initial encounter; S81.802A - Unspecified open wound, left lower leg, initial encounter <Nikki Walton PA-C - Last Filed: 12/23/20 22:54> Code(s): S81.809A - Unspecified open wound, unspecified lower leg, initial encounter <Nikki Walton PA-C - Last Filed: 12/23/20 22:54> Status: Acute <Nikki Walton PA-C - Last Filed: 12/23/20 22:54> Assessment and Plan: * Multiple bilateral leg wounds are weeping. Continue local wound care. 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 Was started on oral clindamycin by ER 4 days ago I am unsure if he took it. * Start IV vancomycin, Zosyn. <Nikki Walton PA-C - Last Filed: 12/23/20 22:54> (5) Hypertension: Qualifiers: Hypertension type: essential hypertension Qualified Code(s): I10 - Essential (primary) hypertension <Nikki Walton PA-C - Last Filed: 12/23/20 22:54> Code(s): I10 - Essential (primary) hypertension <Nikki Walton PA-C - Last Filed: 12/23/20 22:54> Status: Chronic <Nikki Walton PA-C - Last Filed: 12/23/20 22:54> Assessment and Plan: * BPs significantly elevated on arrival now a bit improved after a dose of IV hydralazine overnig
--- NOTE | 2020-12-23 10:37 | PM.IMPN ---
Progress Note: A&P Assessment and Plan (1) Acute on chronic respiratory failure with hypoxia and hypercapnia: Code(s): J96.21 - Acute and chronic respiratory failure with hypoxia; J96.22 - Acute and chronic respiratory failure with hypercapnia <LALIT Dunn-C - Last Filed: 12/23/20 22:54> Status: Acute <LALIT Dunn-C - Last Filed: 12/23/20 22:54> Assessment and Plan: With worsening lethargy and hypercapnia despite BiPAP therapy for [address] Renee and Dr Martinez input. BiPAP settings increased, moved to ICU. See HPI. Test for COVID by PCR. D-dimer 0.61. <AMBER DunnC - Last Filed: 12/23/20 22:54> (2) Congestive heart failure: Qualifiers: Heart failure chronicity: unspecified Heart failure type: unspecified Qualified Code(s): I50.9 - Heart failure, unspecified <LALIT Dunn-C - Last Filed: 12/23/20 22:54> Code(s): I50.9 - Heart failure, unspecified <LALIT Dunn-C - Last Filed: 12/23/20 22:54> Status: Acute <AMBER DunnC - Last Filed: 12/23/20 22:54> Assessment and Plan: Decompensated with generalized edema and acute on chronic SINDY lower extremity swelling. IV Lasix 40mg BID. Low sodium, fluid restricted diet. TSH within normal limits. CXR last evening compared to XR 12/16/20 shows new SINDY airspace opacities pulmonary edema vs pneumonia. Echocardiogram ordered. Continue beta blockade and GHAZALA-I. <AMBER DunnC - Last Filed: 12/23/20 22:54> (3) Edema, peripheral: Code(s): R60.9 - Edema, unspecified <Nikki Walton PA-C - Last Filed: 12/23/20 22:54> Status: Acute <Nikki Walton PA-C - Last Filed: 12/23/20 22:54> Assessment and Plan: Suspect related to sodium indiscretion. Continue aggressive IV lasix therapy. Monitor urine output and renal function. Venous dopplers LE ordered. History of DVT leg last year. <Nikki Walton PA-C - Last Filed: 12/23/20 22:54> (4) Open leg wound: Qualifiers: Encounter type: initial encounter Laterality: bilateral Qualified Code(s): S81.801A - Unspecified open wound, right lower leg, initial encounter; S81.802A - Unspecified open wound, left lower leg, initial encounter <Nikki Walton PA-C - Last Filed: 12/23/20 22:54> Code(s): S81.809A - Unspecified open wound, unspecified lower leg, initial encounter <Nikki Walton PA-C - Last Filed: 12/23/20 22:54> Status: Acute <Nikki Walton PA-C - Last Filed: 12/23/20 22:54> Assessment and Plan: Multiple bilateral leg wounds are weeping. Continue local wound care. stripe marker to see. Was started on oral clindamycin by ER 4 days ago I am unsure if he took it. Start IV vancomycin, Zosyn. <Nikki Walton PA-C - Last Filed: 12/23/20 22:54> (5) Hypertension: Qualifiers: Hypertension type: essential hypertension Qualified Code(s): I10 - Essential (primary) hypertension <Nikki Walton PA-C - Last Filed: 12/23/20 22:54> Code(s): I10 - Essential (primary) hypertension <Nikki Walton PA-C - Last Filed: 12/23/20 22:54> Status: Chronic <Nikki Walton PA-C - Last Filed: 12/23/20 22:54> Assessment and Plan: BPs significantly elevated on arrival now a bit improved after a dose of IV hydralazine overnight. Home lisinopril, hctz, metoprolol ordered but he was too lethargic to take this morning. Monitor BP closely and adjust treatment as needed. <Nikki Walton PA-C - Last Filed: 12/23/20 22:54> (6) Elevated troponin: Code(s): R79.89 - Other specified abnorm
[2020-12-23 11:46] LABS: Ammonia 25 umol/L (9-30)
[2020-12-23 11:56] LABS: NT Pro B Type Natriuretic Pept 1430 PG/ML (5-100)
[2020-12-23 12:17] LABS: Alveolar/Arterial O2 Gradient 43.2 mmHg; Base Excess ABG 5.5 mEq/l (+/-2.0); Fractional Inspired Oxygen 30 %; HCO3 ABG 37.9 mEq/l (22.0-26.0); Oxygen Content ABG 22.7 %vol (16.0-22.0); Oxyhemoglobin 86.2 % THb (90.0-100.0); PCO2 ABG 91.2 mmHg (35.0-45.0); PO2 ABG 63.5 mmHg (80.0-100.0); PO2 FiO2 Ratio Arterial Blood 2.12 %; Total Hemoglobin 18.8 g/dL (12.0-18.0); pH ABG 7.237 (7.350-7.450)
[2020-12-23 12:18] LABS: Device NON-INVASIVE VENT; Modified Allen's Test Pass; Non-Invasive Expiratory Pressure 5 CMH2O; Non-Invasive Inspiratory Pressure 12 CMH2O; Non-Invasive Vent Rate 14 /MIN; Site Drawn LEFT RADIAL
[2020-12-23 12:31] LABS: D Dimer 0.61 ug/mL (<0.48)
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
--- NOTE | 2020-12-23 13:05 | WPDCNINT ---
Assessment and Plan Assessment and plan (1) Acute on chronic respiratory failure with hypoxia and hypercapnia: Code(s): J96.21 - Acute and chronic respiratory failure with hypoxia; J96.22 - Acute and chronic respiratory failure with hypercapnia Status: Acute Assessment and Plan: Hypercapnic most likely related to CHF, could be sepsis, flu COVID-19, pneumonia, obstructive sleep apnea -will obtain flu and SARS-CoV-2 PCR swab -continue bronchodilators -elevated D-dimer, will obtain lower extremity venous Doppler. Patient does have a history of DVT in December 2019 -check echocardiogram -chest x-ray and ABGs reviewed, patient on BiPAP 01/06 with adequate end expiratory volumes, repeat ABG (2) Sepsis: Code(s): A41.9 - Sepsis, unspecified organism Status: Acute Assessment and Plan: Patient with respiratory distress, hypercapnic respiratory failure, leukocytosis, altered mental status -could be due to pneumonia, COVID-19 , cellulitis -patient has been started on vancomycin and Zosyn -will obtain blood and urine cultures (3) Suspected 2019 novel coronavirus infection: Code(s): Z20.822 - Contact with and (suspected) exposure to COVID-19 Status: Acute Assessment and Plan: SARS-CoV-2 PCR has been obtained and pending -continue contact, airborne, droplet precautions/isolation (4) Open leg wound: Qualifiers: Encounter type: initial encounter Laterality: bilateral Qualified Code(s): S81.801A - Unspecified open wound, right lower leg, initial encounter; S81.802A - Unspecified open wound, left lower leg, initial encounter Code(s): S81.809A - Unspecified open wound, unspecified lower leg, initial encounter Status: Acute Assessment and Plan: Wound care following, appreciate their evaluation and recommendation (5) Edema, peripheral: Code(s): R60.9 - Edema, unspecified Status: Acute Assessment and Plan: Generalized anasarca, -echocardiogram has been ordered and pending -Continue diuretics (6) Tobacco dependence: Code(s): F17.200 - Nicotine dependence, unspecified, uncomplicated Status: Chronic Assessment and Plan: Patient with history of tobacco use, smokes half a packet of cigarette for 40 years -counseled patient on cessation of smoking and explained the ill effects of nicotine (7) Congestive heart failure: Qualifiers: Heart failure chronicity: unspecified Heart failure type: unspecified Qualified Code(s): I50.9 - Heart failure, unspecified Code(s): I50.9 - Heart failure, unspecified Status: Acute Assessment and Plan: Patient known to have diastolic dysfunction, chest x-ray shows cardiomegaly, airspace opacities is consistent with pulmonary edema versus pneumonia -continue diuretics -echo pending (8) Elevated troponin: Code(s): R79.89 - Other specified abnormal findings of blood chemistry Status: Acute Assessment and Plan: Elevation in troponin which have plateaued, likely related to type 2 infarct secondary to acute on chronic respiratory failure due to ischemic demand -will repeat troponin -echocardiogram pending, will evaluate for wall motion abnormalities (9) Hypertension: Qualifiers: Hypertension type: essential hypertension Qualified Code(s): I10 - Essential (primary) hypertension Code(s): I10 - Essential (primary) hypertension Status: Chronic Assessment and Plan: History of essential hypertension -continue metoprolol, lisinopril, diuretics Additional Plan Discussed with patient in asked him if his condition worsens in if he requires intubation and place him on a ventilator and also discussed with regarding CPR if his heart stops. He stated he wants to be resuscitated and he is okay with the breathing machine. Code status: Full code Critical care time spent: 46 minutes This dictation may have been done utilizing a voi
--- NOTE | 2020-12-23 13:10 | PC.NURSE ---
Patient arrived via bed with ALEXANDER Gage, Joanne,RT and CCT at bedside. Patient able to verbalize person, place and time. Transfer to ICU bed without issue. Dr Martinez to bedside.
--- NOTE | 2020-12-23 13:33 | PC.NURSE ---
Report given to Pascual.
[2020-12-23 13:58] LABS: Glucose Point of Care 129 (65-105)
[2020-12-23] MEDS: LIDOCAINE HCL 1% PF INJ 5 ML VIAL INFILTRATE (14:25)
[2020-12-23 14:36] LABS: Add Urine Microscopic? YES; Appearance Urine Clear (Clear); Bacteria Urine Trace /hpf; Bilirubin Urine Negative (Negative); Blood Urine 1+ (Negative); Color Urine Yellow (Yellow); Glucose Urine UA Negative (Negative); Ketones Urine Negative (Negative); Leukocyte Esterase Ur Negative LEU/UL (Negative); Mucus Urine Rare /lpf; Nitrate Urine Negative (Negative); Protein Urine 1+ mg/dL (Negative); RBC Urine 0-2 /hpf (0-2); Specific Grav Ur 1.008 (1.001-1.035); Urobilinogen Urine Negative mg/dL (<2.0); WBC Urine 0-3 /hpf
[2020-12-23] MEDS: hydroCHLOROthiazide 12.5 MG CAPSULE PO (15:18)
[2020-12-23] MEDS: MAGNESIUM OXIDE 200 MG TABLET PO ×2 (15:18→20:06)
[2020-12-23] MEDS: METOPROLOL TARTRATE 12.5 MG TABLET PO ×2 (15:18→20:06)
[2020-12-23] MEDS: lisinopriL 20 MG TABLET 40 MG PO (15:19)
[2020-12-23] MEDS: IPRATROPIUM BR 0.02% INH SOLN 0.5 MG/2.5 ML VIAL INHALATION ×2 (15:30→20:21)
[2020-12-23] MEDS: ALBUTEROL SULFATE NEB 2.5 MG/0.5 ML INH INHALATION ×2 (15:30→20:21)
[2020-12-23 15:32] LABS: Alveolar/Arterial O2 Gradient 101.3 mmHg; Base Excess ABG 9.5 mEq/l (+/-2.0); Carboxyhemoglobin 3.8 % THb (0-2.0); Fractional Inspired Oxygen 40 %; HCO3 ABG 40.9 mEq/l (22.0-26.0); Methemoglobin ABG 0.5 %THb (0-1.5); Oxygen Content ABG 23.8 %vol (16.0-22.0); Oxygen Saturation ABG 95.2 % (95.0-100.0); Oxyhemoglobin 91.9 % THb (90.0-100.0); PO2 ABG 86.7 mmHg (80.0-100.0); PO2 FiO2 Ratio Arterial Blood 2.17 %; Reduced Hemoglobin 3.8 %THb (0-5.0); Total Hemoglobin 18.4 g/dL (12.0-18.0); pH ABG 7.303 (7.350-7.450)
[2020-12-23 15:36] LABS: Device NON-INVASIVE VENT; Modified Allen's Test Pass; PCO2 ABG 84.5 mmHg (35.0-45.0); Site Drawn LEFT RADIAL
[2020-12-23 15:37] LABS: Non-Invasive Expiratory Pressure 8 CMH2O; Non-Invasive Inspiratory Pressure 22 CMH2O; Non-Invasive Vent Rate 18 /MIN
[2020-12-23 16:15] LABS: Influenza Control Positive
[2020-12-23 16:48] LABS: Troponin I 0.256 ng/mL (0.000-0.034)
[2020-12-23 18:36] LABS: Amphetamine Screen Urine Negative (Negative); Barbiturate Screen Urine Negative (Negative); Benzodiazepines Screen Urine Negative (Negative); Cannabinoid Screen Urine Negative (Negative); Cocaine Screen Urine Negative (Negative); Methadone Screen Urine Negative (Negative); Opiate Screen Urine Positive (Negative); Phencyclidine Screen Urine Negative (Negative)
[2020-12-23] MEDS: CENTRAL LINE FLUSH 10 ML IV PUSH (20:07)
[2020-12-23] MEDS: BUDESONIDE RESPULE NEB 0.5 MG/2 ML AMP INHALATION (20:21)
[2020-12-24] VITALS (27 sets, daily range): BP systolic 101–142; BP diastolic 63–86; PULSE 74–89; RESP 12–27; TEMP 36.6–38.1; O2SAT 91–100
[2020-12-24] MEDS: IPRATROPIUM BR 0.02% INH SOLN 0.5 MG/2.5 ML VIAL INHALATION ×4 (01:46→20:46)
[2020-12-24] MEDS: ALBUTEROL SULFATE NEB 2.5 MG/0.5 ML INH INHALATION ×4 (01:46→20:46)
--- NOTE | 2020-12-24 02:22 | PCRCNOTE ---
APNEA LINK WAS HELD DUE TO PT CONDITION.
[2020-12-24 04:30] LABS: Basophils Percent Auto 0.3 % (0.2-1.2); Eosinophils Absolute Auto 0.1 K/mm3 (0-0.3); Eosinophils Percent Auto 0.5 % (0-4.4); Hemoglobin 15.8 g/dL (14.0-18.0); Immature Granulocyte Absolute 0.03 K/mm3 (0.00-0.031); Immature Granulocyte Percent A 0.3 % (0-0.5); Lymphocytes Absolute Auto 0.71 K/mm3 (0.9-3.2); Lymphocytes Percent Auto 7.2 % (18.3-44.2); Mean Corpuscular Hemoglobin 29.3 pg (26-34); Mean Corpuscular Volume 94.6 fl (80-100); Mean Platelet Volume 10.7 fl (7.4-10.4); Monocytes Percent Auto 10.5 % (2.6-8.5); Neutrophils Percent Auto 81.2 % (45.5-73.1); Platelet Count Result 260 k/mm3 (150-375); Red Blood Count 5.39 M/mm3 (4.6-6.20); Red Cell Distribution Width 15.2 % (11.5-14.5); White Blood Count 9.9 K/mm3 (4.5-10.0)
[2020-12-24 04:49] LABS: Lactic Acid Reflex 0.9 mmol/L (0.7-2.1)
[2020-12-24 04:56] LABS: Hemoglobin A1C 6.3 % (<5.7)
[2020-12-24 04:59] LABS: LDL Cholesterol Direct 70 mg/dL
[2020-12-24 05:12] LABS: Alanine Aminotransferase 21 U/L (4-50); Alkaline Phosphatase 77 U/L (38-126); Aspartate Amino Transferase 22 U/L (17-59); Bilirubin,Total 0.9 mg/dL (0.2-1.3); Blood Urea Nitrogen 25 mg/dL (9-20); Calcium 8.2 mg/dL (8.4-10.2); Carbon Dioxide > 40 mmol/L (22-30); Chloride 93 mmol/L (98-107); Cholesterol 111 mg/dL (0-200); Estimated CRCL calculation 92 ml/min; Estimated Glomerular Filt Rate > 60; Glucose 143 mg/dL (75-110); HDL Direct 23 mg/dL; Magnesium 1.9 mg/dL (1.6-2.3); Phosphorus 3.6 mg/dL (2.5-4.5); Potassium 3.5 mmol/L (3.4-5.0); Sodium 137 mmol/L (137-145); Triglycerides 90 mg/dL (<150)
[2020-12-24 05:25] LABS: Alveolar/Arterial O2 Gradient 95.1 mmHg; Base Excess ABG 8.8 mEq/l (+/-2.0); Carboxyhemoglobin 2.9 % THb (0-2.0); Fractional Inspired Oxygen 40 %; Methemoglobin ABG 0.4 %THb (0-1.5); Oxygen Content ABG 22.2 %vol (16.0-22.0); Oxygen Saturation ABG 97.5 % (95.0-100.0); Oxyhemoglobin 94.3 % THb (90.0-100.0); Reduced Hemoglobin 2.4 %THb (0-5.0); Total Hemoglobin 16.7 g/dL (12.0-18.0); pH ABG 7.344 (7.350-7.450)
[2020-12-24] MEDS: CENTRAL LINE FLUSH 10 ML IV PUSH ×3 (05:28→21:28)
[2020-12-24 05:30] LABS: PCO2 ABG 71.4 mmHg (35.0-45.0)
[2020-12-24 05:31] LABS: Device NON-INVASIVE VENT; Modified Allen's Test Pass; Non-Invasive Expiratory Pressure 8 CMH2O; Non-Invasive Inspiratory Pressure 22 CMH2O; Non-Invasive Vent Rate 18 /MIN; Site Drawn LEFT RADIAL
--- NOTE | 2020-12-24 07:56 | WPDINTPN ---
Progress Note: A&P Assessment and Plan (1) Acute on chronic respiratory failure with hypoxia and hypercapnia: Code(s): J96.21 - Acute and chronic respiratory failure with hypoxia; J96.22 - Acute and chronic respiratory failure with hypercapnia Status: Acute Assessment and Plan: Hypercapnic most likely related to CHF, could be sepsis, flu COVID-19, pneumonia, obstructive sleep apnea -influenza a and B negative -continue bronchodilators -elevated D-dimer, lower extremity venous Dopplers were negative for DVT bilaterally. Patient does have a history of DVT in December 2019 -echocardiogram has been ordered and pending -chest x-ray and ABGs reviewed, patient on BiPAP 01/06 with adequate end expiratory volumes, ABGs this a.m. with improvement -appreciate pulmonology following the patient (2) Sepsis: Code(s): A41.9 - Sepsis, unspecified organism Status: Acute Assessment and Plan: Patient with respiratory distress, hypercapnic respiratory failure, leukocytosis, altered mental status -could be due to pneumonia, COVID-19 , cellulitis -patient has been started on vancomycin and Zosyn -UA unremarkable -12/23: blood cultures have been obtained and pending (3) Suspected 2019 novel coronavirus infection: Code(s): Z20.822 - Contact with and (suspected) exposure to COVID-19 Status: Acute Assessment and Plan: SARS-CoV-2 PCR has been obtained and pending -continue contact, airborne, droplet precautions/isolation (4) Open leg wound: Qualifiers: Encounter type: initial encounter Laterality: bilateral Qualified Code(s): S81.801A - Unspecified open wound, right lower leg, initial encounter; S81.802A - Unspecified open wound, left lower leg, initial encounter Code(s): S81.809A - Unspecified open wound, unspecified lower leg, initial encounter Status: Acute Assessment and Plan: Wound care following, appreciate their evaluation and recommendation (5) Edema, peripheral: Code(s): R60.9 - Edema, unspecified Status: Acute Assessment and Plan: Generalized anasarca, -echocardiogram has been ordered and pending -patient with contraction alkalosis, will hold hydrochlorothiazide and furosemide -will start Diamox, along with albumin (6) Tobacco dependence: Code(s): F17.200 - Nicotine dependence, unspecified, uncomplicated Status: Chronic Assessment and Plan: Patient with history of tobacco use, smokes half a packet of cigarette for 40 years -counseled patient on cessation of smoking and explained the ill effects of nicotine (7) Congestive heart failure: Qualifiers: Heart failure chronicity: unspecified Heart failure type: unspecified Qualified Code(s): I50.9 - Heart failure, unspecified Code(s): I50.9 - Heart failure, unspecified Status: Acute Assessment and Plan: Patient known to have diastolic dysfunction, chest x-ray shows cardiomegaly, airspace opacities is consistent with pulmonary edema versus pneumonia -continue diuretics -echo pending (8) Elevated troponin: Code(s): R79.89 - Other specified abnormal findings of blood chemistry Status: Acute Assessment and Plan: Elevation in troponin which have plateaued, likely related to type 2 infarct secondary to acute on chronic respiratory failure due to ischemic demand -repeat troponin elevated, will have Cardiology evaluate the patient -echocardiogram pending, will evaluate for wall motion abnormalities (9) Hypertension: Qualifiers: Hypertension type: essential hypertension Qualified Code(s): I10 - Essential (primary) hypertension Code(s): I10 - Essential (primary) hypertension Status: Chronic Assessment and Plan: History of essential hypertension -continue metoprolol, lisinopril, diuretics Additional Plan Discussed with patient and updated with his condition and plan of care.. Code status: Full code Cr
[2020-12-24] MEDS: ALBUMIN HUMAN 25% 12.5 GM/50ML 50 ML IVPB ×2 (07:58→20:07)
--- NOTE | 2020-12-24 08:05 | ECG_ITS ---
Measurements Intervals [place] Rate: 82 P: 59 MT: 183 QRS: -36 QRSD: 68 T: 29 QT: 378 QTc: 444 Interpretive Statements SINUS RHYTHM CANNOT RULE OUT SEPTAL INFARCT, AGE INDETERMINATE INFERIOR INFARCT, AGE INDETERMINATE ABNORMAL ECG Electronically Signed On 12-24-2020 9:00:16 CDT by Vinny Mclaughlin D.O.
[2020-12-24] MEDS: acetaZOLAMIDE SODIUM FOR INJ 500 MG VIAL IV PUSH ×2 (09:00→21:27)
[2020-12-24] MEDS: lisinopriL 20 MG TABLET 40 MG PO (09:04)
[2020-12-24] MEDS: ENOXAPARIN 40 MG/0.4 ML SYRINGE SUB-Q (09:04)
[2020-12-24] MEDS: ASPIRIN 81 MG CHEWABLE TABLET PO (09:04)
[2020-12-24] MEDS: METOPROLOL TARTRATE 12.5 MG TABLET PO ×2 (09:05→21:27)
[2020-12-24] MEDS: MAGNESIUM OXIDE 200 MG TABLET PO ×2 (09:06→21:26)
[2020-12-24] MEDS: TOLNAFTATE 1% POWDER 45 GM BTL 1 APPLIC TOPICAL ×2 (09:13→21:27)
--- NOTE | 2020-12-24 11:05 | PM.PNPUL ---
Progress Note: A&P Assessment and Plan (1) Acute on chronic respiratory failure with hypoxia and hypercapnia: Code(s): J96.21 - Acute and chronic respiratory failure with hypoxia; J96.22 - Acute and chronic respiratory failure with hypercapnia Status: Acute Assessment and Plan: 12/23 Patient with acute on chronic respiratory failure with ABG on 3L 7.35/68/82 and then repeat on BiPAp 12/5 7.24/91/64 on 30%. I have emperically changed him to 25/8, 40% and spoke with Dr. Martinez regarding transfer to ICU for closer monitoring and possible intubation. May consider AVAPS mode in ICU. ABG ordered in one hour. Etiology of acute on chronic respiratory failure includes sepsis (LE cellulitis, respiratory infection, COVID, Flu), fluid overload, PE, untreated LIDIA and alveolar hypoventilation syndrome. Agree with blood cultures, vanco and zosyn brettlly. Lasix as toelrated by hemodynamics and renal function. D dimer is positive and would perform LE dopplers and if positive treat for DVT/PE and if negative CTA if respiratory status is stabilizes. He will need emperic BiPAP treatment at night and when naps while in hospital until her can have a sleep study as an outpatient. Agree with echocardiogram to assess LV, RV function and size. No wheezes on exam and although he is smoker I do not see emphysema on CT scan opf chest from 12/21/2019. I will emperically place on albuterol 2.5 neb Q 6, ipratroprium 05 mg neb Q 6 and budesonide .5 mg neb Q 12. I do not think he need systemic steroids. 12/24 Mental status improved today. Continue current BiPAP 22/8, 40% as getting good TV of 600 and ABG improved to 7.34/71/108. Comfortable setting per patient. CXR without focal consolitaions. No wheezes on exam on albuterol, ipratroprium and budesonide nebs. D dimer positive with negative LE dopplers and CTA of chest without PE on 12/20/20. Agree with no CTA now and no need for full anticoagulation. Echo when SARS-CoV-2 negative and diuresis per wood lather and hosptialist as tolerated by renal and cardiac systems. Discussed with Dr. Del Cid and Dr. Martinez. Subjective Date/time seen: 12/24/20 11:05 Interval history: 12/23 this is a 55-year-old man with a history of morbid obesity, hypertension, congestive heart failure who presented to the emergency room on 12/22 with worsening lower extremity swelling and pain. Patient signed out of the hospital 2 days previously from the ER with positive troponins and lower extremity edema. Patient is now lethargic and I am unable to hand obtain a history. Patient was admitted to the floor with a blood gas of 7.35/68/821 3 L. this morning patient he came lethargic and was empirically placed on BiPAP and after 2 hours of BiPAP 12/5 his blood gas was 7.24/91/64 on 30% FiO2. I went and evaluated the patient and he remained very lethargic you would open his eyes to sternal rub. I recommended transfer to the ICU and empirically placed him on BiPAP 25/8 in 40%. His saturations at the time were 97%. In ICU wore BiPAp an dmental status improved, tolerated break from BiPAP for dinner. LE Dopplers negative. Flu swab negative. 12/24 Currently on BiPAP, following simple commands, ABG on BiPAP 22/8 and 40% 7.34/71/108. Diuresed 1000 ml since midnight. Review of Systems Constitutional: Constitutional: Denies body ache(s) Cardiovascular: Cardiovascular: Denies chest pain Respiratory: Respiratory: Reports dyspnea Gastrointestinal: Gastrointestinal: Denies abdominal pain Genitourinary: Genitourinary: Denies dysuria Musculoskeletal: Musculoskeletal: Denies arthralgias Integumentary/Breasts: Skin/Breast: Reports rash Psychiatric: Psychiatric: Denies anxiety Exam Const: General: cooperative, healthy appearing and in distress Orientation/consciousness: oriented to person, oriented to place and oriented to time Other: lethargic, wakes to sternal rub not following commands HENMT: Head: normal to inspection Ears: hearing
--- NOTE | 2020-12-24 14:24 | PM.IMPN ---
Progress Note: A&P Assessment and Plan (1) Acute on chronic respiratory failure with hypoxia and hypercapnia: Code(s): J96.21 - Acute and chronic respiratory failure with hypoxia; J96.22 - Acute and chronic respiratory failure with hypercapnia Status: Acute Assessment and Plan: With worsening lethargy and hypercapnia despite BiPAP therapy for [address] Renee and Dr Martinez input. BiPAP settings increased, moved to ICU. See HPI. Test for COVID by PCR. D-dimer 0.61. _12/24/20 14:24 Patient is a 55-year-old morbidly obese male with a BMI 53 history of congestive heart failure, presumed obstructive sleep apnea, patient presented emergency department on December 22 with a complaint shortness of breath patient was started on IV lasix and placed on BiPAP plan was to diurese the patient however patient was desaturating initial ABG showed CO2 67 be communicated with a library acquisitions technician adjusted BiPAP setting and after 2 hours patient was more somnolent and slow to respond, repeat ABG showed CO2 of 90 Dr. Renee library acquisitions technician came and saw the patient as patient symptoms were worsening and recommended to transfer the patient ICu and discuss the case with pmo lead, patient being diuresed, there is suspicion patient with positive COVID-19 being tested an isolated, bilateral lower extremity swelling lower extremity negative for DVT, stasis dermatitis, cellulitis being treated with Zosyn and vancomycin, patient states is feeling much better compared to yesterday not a short of breath, denies any fever or chills, eating his lunch. Patient seen by pmo lead and Dr. Renee pulmonology and appreciate (2) Congestive heart failure: Qualifiers: Heart failure chronicity: unspecified Heart failure type: unspecified Qualified Code(s): I50.9 - Heart failure, unspecified Code(s): I50.9 - Heart failure, unspecified Status: Acute Assessment and Plan: Decompensated with generalized edema and acute on chronic SINDY lower extremity swelling. IV Lasix 40mg BID. Low sodium, fluid restricted diet. TSH within normal limits. CXR last evening compared to XR 12/16/20 shows new SINDY airspace opacities pulmonary edema vs pneumonia. Echocardiogram ordered. Continue beta blockade and GHAZALA-I. (3) Edema, peripheral: Code(s): R60.9 - Edema, unspecified Status: Acute Assessment and Plan: Suspect related to sodium indiscretion. Continue aggressive IV lasix therapy. Monitor urine output and renal function. Venous dopplers LE ordered. History of DVT leg last year. (4) Open leg wound: Qualifiers: Encounter type: initial encounter Laterality: bilateral Qualified Code(s): S81.801A - Unspecified open wound, right lower leg, initial encounter; S81.802A - Unspecified open wound, left lower leg, initial encounter Code(s): S81.809A - Unspecified open wound, unspecified lower leg, initial encounter Status: Acute Assessment and Plan: Multiple bilateral leg wounds are weeping. Continue local wound care. commission broker to see. Was started on oral clindamycin by ER 4 days ago I am unsure if he took it. Start IV vancomycin, Zosyn. (5) Hypertension: Qualifiers: Hypertension type: essential hypertension Qualified Code(s): I10 - Essential (primary) hypertension Code(s): I10 - Essential (primary) hypertension Status: Chronic Assessment and Plan: BPs significantly elevated on arrival now a bit improved after a dose of IV hydralazine overnight. Home lisinopril, hctz, metoprolol ordered but he was too lethargic to take this morning. Monitor BP closely and adjust treatment as needed. (6) Elevated troponin: Code(s): R79.89 - Other specified abnormal
--- NOTE | 2020-12-24 15:05 | PM.CNCAR ---
Assessment and Plan Assessment and plan (1) Acute on chronic respiratory failure with hypoxia and hypercapnia: Code(s): J96.21 - Acute and chronic respiratory failure with hypoxia; J96.22 - Acute and chronic respiratory failure with hypercapnia Status: Acute Assessment and Plan: Acute on chronic hypoxic and hypercapnic respiratory failure stabilized on BiPAP currently on high-flow nasal cannula. Lower extremity venous Dopplers negative, history of DVT last year. Continue supportive therapy per pulmonology and Critical Care. Probable LIDIA. Workup once stabilized. (2) Elevated troponin: Code(s): R79.89 - Other specified abnormal findings of blood chemistry Status: Acute Assessment and Plan: Per review of laboratory studies in the system. Rather chronic elevation more so in setting of acute hypoxic and hypercapnic respiratory failure, demand ischemia type 2 infarct not secondary to acute coronary syndrome. EKG abnormal possible old [place]. May consider ischemic evaluation as an outpatient or prior to discharge based on clinical status. Recheck troponin. Telemetry Aspirin 81 mg daily, check lipid panel Continue metoprolol, lisinopril. Further recommendation to follow after review of echo. (3) Congestive heart failure: Qualifiers: Heart failure chronicity: unspecified Heart failure type: unspecified Qualified Code(s): I50.9 - Heart failure, unspecified Code(s): I50.9 - Heart failure, unspecified Status: Acute Assessment and Plan: Acute on chronic heart failure with preserved ejection fraction right history. 2D echocardiogram pending will evaluate for new wall motion abnormalities, LV systolic dysfunction, valve pathology and pulmonary pressures. Recommendation to follow after review. Patient claims compliance with medications yet admits indiscretion with his diet and sodium intake. Continue IV diuresis, accurate input and output. (4) Hypertension: Qualifiers: Hypertension type: essential hypertension Qualified Code(s): I10 - Essential (primary) hypertension Code(s): I10 - Essential (primary) hypertension Status: Chronic Assessment and Plan: Patient with marked hypertension up to 215/137 mmHg at presentation. Much better controlled at present. (5) Tobacco dependence: Code(s): F17.200 - Nicotine dependence, unspecified, uncomplicated Status: Chronic Assessment and Plan: Smoking cessation counseling. (6) Suspected 2019 novel coronavirus infection: Code(s): Z20.822 - Contact with and (suspected) exposure to COVID-19 Status: Acute Assessment and Plan: Currently in isolation. COVID status pending. (7) Open leg wound: Qualifiers: Encounter type: initial encounter Laterality: bilateral Qualified Code(s): S81.801A - Unspecified open wound, right lower leg, initial encounter; S81.802A - Unspecified open wound, left lower leg, initial encounter Code(s): S81.809A - Unspecified open wound, unspecified lower leg, initial encounter Status: Acute Assessment and Plan: Per wound care. Remains on broad-spectrum antibiotics. Blood and urine cultures sent. History of Present Illness History of Present Illness Consult date/time: Date of service: 12/24/20 15:05 Cardiology consultation at the request of Dr. Martinez for our opinion regarding CHF and troponin elevation. Requesting physician: Pedrito Martinez MD Consult reason: congestive heart failure Reason For Visit: CHF, peripheral edema Narrative: Patient is a 55-year-old male with a past medical history significant for heart failure with preserved ejection fraction, morbid obesity, chronic respiratory failure, tobacco abuse, hypertension, dyslipidemia who presented December 20 to the ER where he was felt to have a cellulitis with recommendation for antibiotic therapy. They checked a troponin for unclear reasons which wa
[2020-12-24 18:33] LABS: SARS-CoV-2 RNA PCR Negative
[2020-12-24] MEDS: BUDESONIDE RESPULE NEB 0.5 MG/2 ML AMP INHALATION (20:46)
--- NOTE | 2020-12-24 23:30 | PC.NURSE ---
ALEXANDER Mayers to resume this patients care. Report given by this nurse.
--- NOTE | 2020-12-24 23:34 | PC.NURSE ---
This RN assumed care of this patient
[2020-12-25] VITALS (26 sets, daily range): BP systolic 97–153; BP diastolic 62–87; PULSE 56–93; RESP 14–22; TEMP 36.9–37.4; O2SAT 85–100
[2020-12-25 01:55] LABS: Vancomycin Trough 17.2 ug/mL (10.0-20.0)
[2020-12-25] MEDS: ALBUTEROL SULFATE NEB 2.5 MG/0.5 ML INH INHALATION ×4 (02:00→20:13)
[2020-12-25] MEDS: IPRATROPIUM BR 0.02% INH SOLN 0.5 MG/2.5 ML VIAL INHALATION ×4 (02:00→20:13)
[2020-12-25 04:44] LABS: Basophils Percent Auto 0.5 % (0.2-1.2); Eosinophils Absolute Auto 0.1 K/mm3 (0-0.3); Eosinophils Percent Auto 0.9 % (0-4.4); Hematocrit 53.3 % (42.0-52.0); Immature Granulocyte Absolute 0.02 K/mm3 (0.00-0.031); Immature Granulocyte Percent A 0.2 % (0-0.5); Lymphocytes Absolute Auto 0.83 K/mm3 (0.9-3.2); Lymphocytes Percent Auto 10.3 % (18.3-44.2); Mean Corpuscular Hemoglobin 29.6 pg (26-34); Mean Corpuscular Volume 98.7 fl (80-100); Mean Platelet Volume 10.8 fl (7.4-10.4); Monocytes Percent Auto 12.5 % (2.6-8.5); Neutrophils Absolute Auto 6.1 K/mm3 (1.3-6.7); Neutrophils Percent Auto 75.6 % (45.5-73.1); Platelet Count Result 256 k/mm3 (150-375); Red Cell Distribution Width 15.3 % (11.5-14.5)
[2020-12-25 04:44] LABS: Alveolar/Arterial O2 Gradient 125.2 mmHg; Base Excess ABG 6.1 mEq/l (+/-2.0); Carboxyhemoglobin 1.6 % THb (0-2.0); Fractional Inspired Oxygen 45 %; Methemoglobin ABG 0.5 %THb (0-1.5); Oxygen Content ABG 22.3 %vol (16.0-22.0); Oxygen Saturation ABG 96.5 % (95.0-100.0); Oxyhemoglobin 94.8 % THb (90.0-100.0); PO2 ABG 100.9 mmHg (80.0-100.0); PO2 FiO2 Ratio Arterial Blood 2.24 %; Reduced Hemoglobin 3.1 %THb (0-5.0); Total Hemoglobin 16.7 g/dL (12.0-18.0)
[2020-12-25 04:47] LABS: Modified Allen's Test Pass; PCO2 ABG 83.3 mmHg (35.0-45.0); Site Drawn LEFT RADIAL; pH ABG 7.266 (7.350-7.450)
[2020-12-25 04:48] LABS: Device NON-INVASIVE VENT; Non-Invasive Expiratory Pressure 8 CMH2O; Non-Invasive Inspiratory Pressure 22 CMH2O; Non-Invasive Vent Rate 20 /MIN
[2020-12-25 05:05] LABS: Alanine Aminotransferase 18 U/L (4-50); Albumin Level 3.3 g/dL (3.5-5.1); Alkaline Phosphatase 78 U/L (38-126); Aspartate Amino Transferase 21 U/L (17-59); Bilirubin,Total 0.9 mg/dL (0.2-1.3); Blood Urea Nitrogen 20 mg/dL (9-20); Calcium 8.6 mg/dL (8.4-10.2); Carbon Dioxide > 40 mmol/L (22-30); Chloride 94 mmol/L (98-107); Estimated CRCL calculation 89 ml/min; Estimated Glomerular Filt Rate > 60; Glucose 100 mg/dL (75-110); Potassium 3.6 mmol/L (3.4-5.0); Sodium 134 mmol/L (137-145)
[2020-12-25] MEDS: CENTRAL LINE FLUSH 10 ML IV PUSH ×3 (05:24→23:02)
[2020-12-25 05:25] LABS: CRP 13.2 mg/dL (<1.0)
[2020-12-25] MEDS: PERFLUTREN LIPID MICROSPHERES 1.5 ML VIAL DILUTED TO 10 ML TOTAL VOLUME IV PUSH (07:47)
[2020-12-25] MEDS: ALBUMIN HUMAN 25% 12.5 GM/50ML 50 ML IVPB ×2 (08:45→20:06)
[2020-12-25] MEDS: ASPIRIN 81 MG CHEWABLE TABLET PO (08:47)
[2020-12-25] MEDS: lisinopriL 20 MG TABLET 40 MG PO (08:47)
[2020-12-25] MEDS: ENOXAPARIN 40 MG/0.4 ML SYRINGE SUB-Q (08:47)
--- NOTE | 2020-12-25 08:47 | PM.PNPUL ---
Progress Note: A&P Assessment and Plan (1) Acute on chronic respiratory failure with hypoxia and hypercapnia: Code(s): J96.21 - Acute and chronic respiratory failure with hypoxia; J96.22 - Acute and chronic respiratory failure with hypercapnia Status: Acute Assessment and Plan: 12/23 Patient with acute on chronic respiratory failure with ABG on 3L 7.35/68/82 and then repeat on BiPAp 12/5 7.24/91/64 on 30%. I have emperically changed him to 25/8, 40% and spoke with Dr. Martinez regarding transfer to ICU for closer monitoring and possible intubation. May consider AVAPS mode in ICU. ABG ordered in one hour. Etiology of acute on chronic respiratory failure includes sepsis (LE cellulitis, respiratory infection, COVID, Flu), fluid overload, PE, untreated LIDIA and alveolar hypoventilation syndrome. Agree with blood cultures, vanco and zosyn ericerically. Lasix as toelrated by hemodynamics and renal function. D dimer is positive and would perform LE dopplers and if positive treat for DVT/PE and if negative CTA if respiratory status is stabilizes. He will need emperic BiPAP treatment at night and when naps while in hospital until her can have a sleep study as an outpatient. Agree with echocardiogram to assess LV, RV function and size. No wheezes on exam and although he is smoker I do not see emphysema on CT scan opf chest from 12/21/2019. I will emperically place on albuterol 2.5 neb Q 6, ipratroprium 05 mg neb Q 6 and budesonide .5 mg neb Q 12. I do not think he need systemic steroids. 12/24 Mental status improved today. Continue current BiPAP 22/8, 40% as getting good TV of 600 and ABG improved to 7.34/71/108. Comfortable setting per patient. CXR without focal consolitaions. No wheezes on exam on albuterol, ipratroprium and budesonide nebs. D dimer positive with negative LE dopplers and CTA of chest without PE on 12/20/20. Agree with no CTA now and no need for full anticoagulation. Echo when SARS-CoV-2 negative and diuresis per medicaid eligibility specialist and hosptialist as tolerated by renal and cardiac systems. 12/25 SARS-CoV-2 negative. Patient wore BiPAP intermittantly as high leak with rocha and alrms were waking him. ABG 7.27/83/101 on rate of 20, 22/8, 45%. More awake on high flow nasal cannula 35L and 60% with sats 99%. On entering room patient sleeping with witnessed obstructive events with aurousals and desat to 97%. 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 Lasix 40 IV BID started for diuresis. -shave his rocha so that he can wear BiPAP whenever he sleeps. I told me it was OK to shave it off. -lasix 40 IV BID -Echo to assess LV, RV, pulmonary pressures and WMA (positive troponins). -no wheezes and will DC inhaled corticosteroids and continue SEBASTIAN and CASSIDY for now. -No evidence of pneumonia -OT and PT, OOB and ambulate if possible Discussed with Dr. Martinez. Will follow with you. Subjective Date/time seen: 12/25/20 08:47 Interval history: 12/23 this is a 55-year-old man with a history of morbid obesity, hypertension, congestive heart failure who presented to the emergency room on 12/22 with worsening lower extremity swelling and pain. Patient signed out of the hospital 2 days previously from the ER with positive troponins and lower extremity edema. Patient is now lethargic and I am unable to hand obtain a history. Patient was admitted to the floor with a blood gas of 7.35/68/821 3 L. this morning patient he came lethargic and was empirically placed on BiPAP and after 2 hours of BiPAP 12/5 his blood gas was 7.24/91/64 on 30% FiO2. I went and evaluated the patient and he remained very lethargic you would open his eyes to sternal rub. I recommended transfer to the ICU and empirically placed him on BiPAP 25/8 in 40%. His saturations at the time were 97%. In ICU wore BiPAp an dmental status improved, tolerated break from BiPAP for d
[2020-12-25] MEDS: MAGNESIUM OXIDE 200 MG TABLET PO ×2 (08:48→21:00)
[2020-12-25] MEDS: METOPROLOL TARTRATE 12.5 MG TABLET PO ×2 (08:48→21:00)
[2020-12-25] MEDS: TOLNAFTATE 1% POWDER 45 GM BTL 1 APPLIC TOPICAL ×2 (08:49→21:01)
[2020-12-25] MEDS: acetaZOLAMIDE SODIUM FOR INJ 500 MG VIAL IV PUSH (09:03)
--- NOTE | 2020-12-25 09:16 | WPDINTPN ---
Progress Note: A&P Assessment and Plan (1) Acute on chronic respiratory failure with hypoxia and hypercapnia: Code(s): J96.21 - Acute and chronic respiratory failure with hypoxia; J96.22 - Acute and chronic respiratory failure with hypercapnia Status: Acute Assessment and Plan: Hypercapnic most likely related to CHF, could be sepsis, flu COVID-19, pneumonia, obstructive sleep apnea -influenza a and B negative -continue bronchodilators -elevated D-dimer, lower extremity venous Dopplers were negative for DVT bilaterally. Patient does have a history of DVT in December 2019 -echocardiogram has been ordered and pending -chest x-ray and ABGs reviewed, patient did not wear his BiPAP continuously overnight as due to increased leak secondary to patient's rocha, had a alarms on the BiPAP machine kept him awake. -consulting group analyst discussed with patient and he has agreed to have his BUN shaved for better seal on the BiPAP machine -also will discuss with pulmonology regarding home BiPAP (2) Sepsis: Code(s): A41.9 - Sepsis, unspecified organism Status: Acute Assessment and Plan: Patient with respiratory distress, hypercapnic respiratory failure, leukocytosis, altered mental status -could be due to pneumonia, COVID-19 , cellulitis -patient has been started on vancomycin and Zosyn -UA unremarkable -12/23: blood cultures negative times (3) Suspected 2019 novel coronavirus infection: Code(s): Z20.822 - Contact with and (suspected) exposure to COVID-19 Status: Acute Assessment and Plan: SARS-CoV-2 PCR negative -will discontinue all isolation/precautions (4) Open leg wound: Qualifiers: Encounter type: initial encounter Laterality: bilateral Qualified Code(s): S81.801A - Unspecified open wound, right lower leg, initial encounter; S81.802A - Unspecified open wound, left lower leg, initial encounter Code(s): S81.809A - Unspecified open wound, unspecified lower leg, initial encounter Status: Acute Assessment and Plan: Wound care following, appreciate their evaluation and recommendation -will obtain wound culture (5) Edema, peripheral: Code(s): R60.9 - Edema, unspecified Status: Acute Assessment and Plan: Generalized anasarca, -echocardiogram has been ordered and pending -patient with contraction alkalosis, will hold hydrochlorothiazide and furosemide -continue Diamox, along with albumin (6) Tobacco dependence: Code(s): F17.200 - Nicotine dependence, unspecified, uncomplicated Status: Chronic Assessment and Plan: Patient with history of tobacco use, smokes half a packet of cigarette for 40 years -counseled patient on cessation of smoking and explained the ill effects of nicotine (7) Congestive heart failure: Qualifiers: Heart failure chronicity: unspecified Heart failure type: unspecified Qualified Code(s): I50.9 - Heart failure, unspecified Code(s): I50.9 - Heart failure, unspecified Status: Acute Assessment and Plan: Patient known to have diastolic dysfunction, chest x-ray shows cardiomegaly, airspace opacities is consistent with pulmonary edema versus pneumonia -continue diuretics -echo pending (8) Elevated troponin: Code(s): R79.89 - Other specified abnormal findings of blood chemistry Status: Acute Assessment and Plan: Elevation in troponin which have plateaued, likely related to type 2 infarct secondary to acute on chronic respiratory failure due to ischemic demand -repeat troponin elevated, -appreciate cardiology evaluation and recommendation -echocardiogram pending, will evaluate for wall motion abnormalities -continue aspirin, beta-blockers, GHAZALA-inhibitor -total cholesterol, LDL within normal limits. Low HDL (9) Hypertension: Qualifiers: Hypertension type: essential hypertension Qualified Code(s): I10 - Essential (primary) hypertension Code(s): I10 - E
--- NOTE | 2020-12-25 12:42 | PM.IMPN ---
Progress Note: A&P Assessment and Plan (1) Acute on chronic respiratory failure with hypoxia and hypercapnia: Code(s): J96.21 - Acute and chronic respiratory failure with hypoxia; J96.22 - Acute and chronic respiratory failure with hypercapnia Status: Acute Assessment and Plan: With worsening lethargy and hypercapnia despite BiPAP therapy for [address] Renee and Dr Martinez input. BiPAP settings increased, moved to ICU. See HPI. Test for COVID by PCR. D-dimer 0.61. 12/25/20 12:42 12/24 Patient is a 55-year-old morbidly obese male with a BMI 53 history of congestive heart failure, presumed obstructive sleep apnea, patient presented emergency department on December 22 with a complaint shortness of breath patient was started on IV lasix and placed on BiPAP plan was to diurese the patient however patient was desaturating initial ABG showed CO2 67 be communicated with a embossing machine operator helper adjusted BiPAP setting and after 2 hours patient was more somnolent and slow to respond, repeat ABG showed CO2 of 90 Dr. Renee embossing machine operator helper came and saw the patient as patient symptoms were worsening and recommended to transfer the patient ICu and discuss the case with compactor driver, patient being diuresed, there is suspicion patient with positive COVID-19 being tested an isolated, bilateral lower extremity swelling lower extremity negative for DVT, stasis dermatitis, cellulitis being treated with Zosyn and vancomycin, patient states is feeling much better compared to yesterday not a short of breath, denies any fever or chills, eating his lunch. Patient seen by compactor driver and Dr. Renee pulmonology and appreciate 12/25 patient COVID test is negative, patient had difficult time wearing BiPAP last night and his beared prevented good seal and BIPAP kept beeping and he was not able to sleep, however patient is doing well is being diuresed with seen by embossing machine operator helper and compactor driver his clinically stable will transfer patient out of ICU to IMU will continue to monitor and diurese the patient, patient will benefit from PT OT (2) Congestive heart failure: Qualifiers: Heart failure chronicity: unspecified Heart failure type: unspecified Qualified Code(s): I50.9 - Heart failure, unspecified Code(s): I50.9 - Heart failure, unspecified Status: Acute Assessment and Plan: Decompensated with generalized edema and acute on chronic SINDY lower extremity swelling. IV Lasix 40mg BID. Low sodium, fluid restricted diet. TSH within normal limits. CXR last evening compared to XR 12/16/20 shows new SINDY airspace opacities pulmonary edema vs pneumonia. Echocardiogram ordered. Continue beta blockade and GHAZALA-I. (3) Edema, peripheral: Code(s): R60.9 - Edema, unspecified Status: Acute Assessment and Plan: Suspect related to sodium indiscretion. Continue aggressive IV lasix therapy. Monitor urine output and renal function. Venous dopplers LE ordered. History of DVT leg last year. (4) Open leg wound: Qualifiers: Encounter type: initial encounter Laterality: bilateral Qualified Code(s): S81.801A - Unspecified open wound, right lower leg, initial encounter; S81.802A - Unspecified open wound, left lower leg, initial encounter Code(s): S81.809A - Unspecified open wound, unspecified lower leg, initial encounter Status: Acute Assessment and Plan: Multiple bilateral leg wounds are weeping. Continue local wound care. urinalysis technician to see. Was started on oral clindamycin by ER 4 days ago I am unsure if he took it. Start IV vancomycin, Zosyn. (5) Hypertension: Qualifiers: Hypertension type: essential hypertension Qualified Code(s): I10 - Essential (primary) hypertension Code(s): I10 - Essential (primary) hy
--- NOTE | 2020-12-25 13:22 | PCRCNOTE ---
Home Trilogy arrangements pending with [facility]. .
--- NOTE | 2020-12-25 13:31 | ECHO_ITS ---
Patient Info Name: Jb Gamboa Age: 55 years : 1965 Gender: Male Ht: 65 in Wt: 332 lbs BSA: 2.72 m2 HR: 91 bpm BP: 138 / 103 mmHg Heart Rhythm: Sinus Rhythm Technical Quality: Good Exam Date: 12/25/2020 7:16 AM Exam Location: [facility] Patient Status: Inpatient Admit Date: 12/23/2020 Staff Ordering Physician: Pedrito Martinez MD Monument Stonecutter: Nam Rdz, BREANN, RT Attending Provider: Nikki Walton PA-C Referring Physician: Michelle WARD; Exam Type: CA echo dop color flow w con Study Info Indications R60.0 - Localized edema I50.9 - Heart failure, unspecified Complete two-dimensional, color flow and Doppler transthoracic echocardiogram is performed with contrast to opacify the left ventricle and to improve the deliniation of the left ventricle endocardial borders. Summary 1. Left ventricular systolic function is hyperdynamic, estimated at >70%. 2. There is moderately increased left ventricular wall thickness. 3. The left ventricular diastolic function is grade I diastolic dysfunction. 4. Right atrial chamber dimension is severely enlarged. 5. Right ventricular chamber dimension is probably mildly enlarged, although not well visualized. 6. Right ventricular systolic function is mildly reduced. 7. There is mild tricuspid valve regurgitation. 8. Severe pulmonary hypertension, estimated pulmonary arterial systolic pressure is 62 mmHg. 9. Technically difficult study with limited views. Definity contrast echo administration untilized to improve endomyocardial border definition. Left Ventricle Left ventricular chamber dimension is normal. Left ventricular systolic function is hyperdynamic, estimated at >70%. There is moderately increased left ventricular wall thickness. The left ventricular diastolic function is grade I diastolic dysfunction. Right Ventricle Right ventricular chamber dimension is probably mildly enlarged, although not well visualized. Right ventricular systolic function is mildly reduced. Left Atria Left atrial chamber dimension is normal. Right Atria Right atrial chamber dimension is severely enlarged. Aortic Valve The aortic valve is not well visualized. There is mild aortic valve sclerosis. There is no aortic valve stenosis. There is no aortic valve regurgitation. Pulmonic Valve The pulmonic valve is not well visualized. Mitral Valve The mitral valve has normal leaflets. There is trace mitral valve regurgitation. The mitral valve annulus is moderately calcified. Tricuspid Valve The tricuspid valve leaflets are not well visualized. There is mild tricuspid valve regurgitation. Severe pulmonary hypertension, estimated pulmonary arterial systolic pressure is 62 mmHg. Pericardium/Pleural The pericardium appears normal. There is trivial pericardial effusion. Inferior Vena Cava Dilated inferior vena cava with <50% collapse upon inspiration consistent with elevated right atrial pressure, 10 mmHg. Aorta The aortic root size at the sinus of Valsalva is normal. There is mild aortic atherosclerosis. Left Ventricular Outflow Tract Name Value Normal LVOT 2D LVOT Diameter 2.00 cm LVOT Doppler ---------
--- NOTE | 2020-12-25 14:45 | PM.PNCARD ---
Progress Note: A&P Assessment and Plan (1) Acute on chronic respiratory failure with hypoxia and hypercapnia: Code(s): J96.21 - Acute and chronic respiratory failure with hypoxia; J96.22 - Acute and chronic respiratory failure with hypercapnia Status: Acute Assessment and Plan: Acute on chronic hypoxic and hypercapnic respiratory failure stabilizing on BiPAP/NIPPV, bronchodilators, high-flow nasal cannula, and IV duiresis. Trying to get Trilogy unit for pt. Underlying untreated obstructive sleep apnea, hypoventilation, COPD complicated by heart failure with preserved ejection fraction. Lower extremity venous Dopplers negative, history of DVT last year. Continue supportive therapy per pulmonology and Critical Care. Probable LIDIA. Workup once stabilized. (2) Elevated troponin: Code(s): R79.89 - Other specified abnormal findings of blood chemistry Status: Acute Assessment and Plan: Per review of laboratory studies in the system he has rather chronic troponin elevations more so in setting of acute hypoxic and hypercapnic respiratory failure, demand ischemia type 2 infarct not secondary to acute coronary syndrome. EKG abnormal possible old [place]. May consider ischemic evaluation as an outpatient or prior to discharge based on clinical status. Recheck troponin. Telemetry Aspirin 81 mg daily, check lipid panel Continue metoprolol, lisinopril. Echocardiogram personally reviewed hyperdynamic LV systolic function EF greater than 70%, moderate LVH, severe pulmonary hypertension RVSP 62 mm Hg. (3) Congestive heart failure: Qualifiers: Heart failure chronicity: unspecified Heart failure type: unspecified Qualified Code(s): I50.9 - Heart failure, unspecified Code(s): I50.9 - Heart failure, unspecified Status: Acute Assessment and Plan: Acute on chronic heart failure with preserved ejection fraction right history. Patient remains significantly volume overloaded. If urine output does not improve no overnight increased to 40 mg IV Q 8h. Patient claims compliance with medications yet admits indiscretion with his diet and sodium intake. Continue IV diuresis, accurate input and output. (4) Hypertension: Qualifiers: Hypertension type: essential hypertension Qualified Code(s): I10 - Essential (primary) hypertension Code(s): I10 - Essential (primary) hypertension Status: Chronic Assessment and Plan: Patient with marked hypertension up to 215/137 mmHg at presentation. Much better controlled at present. (5) Tobacco dependence: Code(s): F17.200 - Nicotine dependence, unspecified, uncomplicated Status: Chronic Assessment and Plan: Smoking cessation counseling. (6) Suspected 2019 novel coronavirus infection: Code(s): Z20.822 - Contact with and (suspected) exposure to COVID-19 Status: Acute Assessment and Plan: Negative COVID. Isolation discontinued. (7) Open leg wound: Qualifiers: Encounter type: initial encounter Laterality: bilateral Qualified Code(s): S81.801A - Unspecified open wound, right lower leg, initial encounter; S81.802A - Unspecified open wound, left lower leg, initial encounter Code(s): S81.809A - Unspecified open wound, unspecified lower leg, initial encounter Status: Acute Assessment and Plan: Per wound care. Remains on broad-spectrum antibiotics. Blood and urine cultures sent. Subjective Date/time seen: Date of service:12/25/20 14:45 Follow-up for acute respiratory failure, CHF patient feels slightly improved states this is taking for ever. Still tired, short of breath. Frustrated he is not able to walk around his room. Nursing reports he desaturates on BiPAP during sleep in the supine position. It is also noted patient would not consistently wear BiPAP due to mask leak. Higgins trimmed improving seal. Trilogy unit access pending. no chest pain. CO
[2020-12-25 16:22] LABS: Troponin I 0.302 ng/mL (0.000-0.034)
[2020-12-25] MEDS: FUROSEMIDE INJ 40 MG/4 ML VIAL IV PUSH (17:01)
[2020-12-26] VITALS (27 sets, daily range): BP systolic 121–156; BP diastolic 64–94; PULSE 78–101; RESP 12–24; TEMP 36–37.7; O2SAT 88–100
[2020-12-26] MEDS: IPRATROPIUM BR 0.02% INH SOLN 0.5 MG/2.5 ML VIAL INHALATION ×4 (01:43→18:28)
[2020-12-26] MEDS: ALBUTEROL SULFATE NEB 2.5 MG/0.5 ML INH INHALATION ×4 (01:43→18:29)
--- NOTE | 2020-12-26 04:15 | PC.NURSE ---
Patient yelled out for dad , when entering room to assess needs patient states I called for dad. Expressed understanding and inquired what RN could do for patient. Patient states you guys aren't paying attention to me. You are paying more attention to the black people around here. Emotional support offered and reassured RN's currently working have provided their attention to his needs.
[2020-12-26 05:26] LABS: Alveolar/Arterial O2 Gradient 199.8 mmHg; Base Excess ABG 5.4 mEq/l (+/-2.0); Carboxyhemoglobin 1.6 % THb (0-2.0); Fractional Inspired Oxygen 46 %; HCO3 ABG 34.1 mEq/l (22.0-26.0); Methemoglobin ABG 0.4 %THb (0-1.5); Oxygen Content ABG 20.3 %vol (16.0-22.0); Oxyhemoglobin 85.4 % THb (90.0-100.0); PO2 ABG 53.2 mmHg (80.0-100.0); PO2 FiO2 Ratio Arterial Blood 1.16 %; Reduced Hemoglobin 12.6 %THb (0-5.0)
[2020-12-26 05:29] LABS: PCO2 ABG 66.1 mmHg (35.0-45.0)
[2020-12-26 05:30] LABS: Device HIGH FLOW THERAPY; Oxygen Saturation ABG 84.2 % (95.0-100.0); Site Drawn RIGHT BRACHIAL
[2020-12-26 05:39] LABS: Basophils Absolute Auto 0.1 K/mm3 (0.0-0.1); Basophils Percent Auto 0.6 % (0.2-1.2); Eosinophils Absolute Auto 0.1 K/mm3 (0-0.3); Eosinophils Percent Auto 0.8 % (0-4.4); Hematocrit 53.5 % (42.0-52.0); Hemoglobin 16.5 g/dL (14.0-18.0); Immature Granulocyte Absolute 0.03 K/mm3 (0.00-0.031); Immature Granulocyte Percent A 0.3 % (0-0.5); Lymphocytes Absolute Auto 0.67 K/mm3 (0.9-3.2); Mean Corpuscular HGB Conc 30.8 g/dl (32-36); Mean Corpuscular Hemoglobin 29.7 pg (26-34); Mean Corpuscular Volume 96.2 fl (80-100); Mean Platelet Volume 10.6 fl (7.4-10.4); Monocytes Absolute Auto 1.1 K/mm3 (0.1-0.6); Monocytes Percent Auto 11.9 % (2.6-8.5); Neutrophils Absolute Auto 7.6 K/mm3 (1.3-6.7); Neutrophils Percent Auto 79.4 % (45.5-73.1); Platelet Count Result 252 k/mm3 (150-375); Red Blood Count 5.56 M/mm3 (4.6-6.20); Red Cell Distribution Width 15.1 % (11.5-14.5); White Blood Count 9.6 K/mm3 (4.5-10.0)
[2020-12-26 05:50] LABS: Anion Gap 2 mmol/L (8-16); Blood Urea Nitrogen 24 mg/dL (9-20); Calcium 8.8 mg/dL (8.4-10.2); Carbon Dioxide 37 mmol/L (22-30); Chloride 97 mmol/L (98-107); Estimated CRCL calculation 77 ml/min; Estimated Glomerular Filt Rate 57; Glucose 137 mg/dL (75-110); Magnesium 2.2 mg/dL (1.6-2.3); Phosphorus 3.3 mg/dL (2.5-4.5); Potassium 3.8 mmol/L (3.4-5.0); Sodium 136 mmol/L (137-145)
--- NOTE | 2020-12-26 05:55 | PC.NURSE ---
Patient pulled AVAP apart. Attempted to place back on I'm not wearing that, I just can't take it. This RN stated the patient had been wearing the AVAP for 20 minutes I think you are all lying to me. Reassurance provided.
[2020-12-26] MEDS: CENTRAL LINE FLUSH 10 ML IV PUSH ×3 (06:04→21:05)
[2020-12-26] MEDS: ASPIRIN 81 MG CHEWABLE TABLET PO (08:03)
[2020-12-26] MEDS: lisinopriL 20 MG TABLET 40 MG PO (08:03)
[2020-12-26] MEDS: FUROSEMIDE INJ 40 MG/4 ML VIAL 20 MG IV PUSH (08:04)
[2020-12-26] MEDS: METOPROLOL TARTRATE 12.5 MG TABLET PO ×2 (08:04→21:01)
[2020-12-26] MEDS: ENOXAPARIN 40 MG/0.4 ML SYRINGE SUB-Q (08:04)
[2020-12-26] MEDS: MAGNESIUM OXIDE 200 MG TABLET PO ×2 (08:04→21:02)
[2020-12-26] MEDS: TOLNAFTATE 1% POWDER 45 GM BTL 1 APPLIC TOPICAL ×2 (08:15→21:05)
--- NOTE | 2020-12-26 08:47 | PM.PNPUL ---
Progress Note: A&P Assessment and Plan (1) Acute on chronic respiratory failure with hypoxia and hypercapnia: Code(s): J96.21 - Acute and chronic respiratory failure with hypoxia; J96.22 - Acute and chronic respiratory failure with hypercapnia Status: Acute (2) Obesity hypoventilation syndrome: Code(s): E66.2 - Morbid (severe) obesity with alveolar hypoventilation Status: Acute Assessment and Plan: 12/23 Patient with acute on chronic respiratory failure with ABG on 3L 7.35/68/82 and then repeat on BiPAp 09/14 7.24/91/64 on 30%. I have emperically changed him to 25/8, 40% and spoke with Dr. Martinez regarding transfer to ICU for closer monitoring and possible intubation. May consider AVAPS mode in ICU. ABG ordered in one hour. Etiology of acute on chronic respiratory failure includes obesity hypoventilation syndrome, sepsis (LE cellulitis, respiratory infection, COVID, Flu), fluid overload, PE, and untreated LIDIA. Agree with blood cultures, vanco and zosyn emperically. Lasix as toelrated by hemodynamics and renal function. D dimer is positive and would perform LE dopplers and if positive treat for DVT/PE and if negative CTA if respiratory status is stabilizes. He will need emperic BiPAP treatment at night and when naps while in hospital until her can have a sleep study as an outpatient. Agree with echocardiogram to assess LV, RV function and size. No wheezes on exam and although he is smoker I do not see emphysema on CT scan opf chest from 12/21/2019. I will emperically place on albuterol 2.5 neb Q 6, ipratroprium 05 mg neb Q 6 and budesonide .5 mg neb Q 12. I do not think he need systemic steroids. 12/24 Mental status improved today. Continue current BiPAP 22/8, 40% as getting good TV of 600 and ABG improved to 7.34/71/108. Comfortable setting per patient. CXR without focal consolidations. No wheezes on exam on albuterol, ipratroprium and budesonide nebs. D dimer positive with negative LE dopplers and CTA of chest without PE on 12/20/20. Agree with no CTA now and no need for full anticoagulation. Echo when SARS-CoV-2 negative and diuresis as tolerated by renal and cardiac systems. 12/25 SARS-CoV-2 negative. Patient wore BiPAP intermittantly as high leak with rocha and alrms were waking him. ABG 7.27/83/101 on rate of 20, 22/8, 45%. More awake on high flow nasal cannula 35L and 60% with sats 99%. On entering room patient sleeping with witnessed obstructive events with aurousals and desat to 97%. 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 Lasix 40 IV BID started for diuresis. Shaved later in day. DC nebulized budesonide. OOB to chair. Echo was TDS with normal LV function with EF >70, Grade 1 diastolic dysfunction, severely enlarged RA, RV probably mildly enlarged with mildly reduced function, mild TR with RVSP 62. Patient with morbid obesity and chronic respiratory failure due to obesity hypoventilation syndrome with ABG on admit of 7.35/68/82 on 3 L. CPAP ruled out as will not treat hypercarbia and patient not tolerating BiPAP as to high of leak and pressures. Will place on AVAPS mode with RR 20, TV 500, EPAP 8, min inspiratory pressure 9, max inspiratory pressure 30, 45%. ABG in morning prior to removal of AVAPS. 12/26 Did not tolerate BiPAP (leak and pressures too high) so placed on AVAPS mode with rate 20, TV 500, EPAP8, Inspire min 9, inspire max 30, rise 5, I time 1.00, 40%. He rips off machine at times and refuses to wear at times but today he tells me he will continue to try and use the machine. ABG on high flow NC 35L and 45% was 7.33/66/53 this morning. Cr 1.30 and lasix decreased to 20 IV Q day. Will follow with you. Subjective Date/time seen: 12/26/20 08:47 Interval history: 12/23 this is a 55-year-old man with a history of morbid obesity, hypertension, congestive heart failure who presented to the emerge
--- NOTE | 2020-12-26 11:33 | PCPTNOTE ---
The PT treatment was unable to be completed today due to patient refusal. When asked to participate patient stated I don't want to see any of you people, go away. Will continue per Plan of Care frequency and duration.
--- NOTE | 2020-12-26 12:55 | PM.PNCARD ---
Progress Note: A&P Assessment and Plan (1) Acute on chronic respiratory failure with hypoxia and hypercapnia: Code(s): J96.21 - Acute and chronic respiratory failure with hypoxia; J96.22 - Acute and chronic respiratory failure with hypercapnia Status: Acute Assessment and Plan: Acute on chronic hypoxic and hypercapnic respiratory failure stabilizing on BiPAP/NIPPV, bronchodilators, high-flow nasal cannula, and IV duiresis. Remains on vancomycin and piperacillin tazobactam. Underlying untreated obstructive sleep apnea, hypoventilation, COPD complicated by heart failure with preserved ejection fraction. Continue supportive therapy per pulmonology. Probable LIDIA. Workup once stabilized. (2) Elevated troponin: Code(s): R79.89 - Other specified abnormal findings of blood chemistry Status: Acute Assessment and Plan: Per review of laboratory studies in the system he has rather chronic troponin elevations more so in setting of acute hypoxic and hypercapnic respiratory failure, demand ischemia type 2 infarct not secondary to acute coronary syndrome. EKG abnormal possible old [place]. May consider ischemic evaluation as an outpatient or prior to discharge based on clinical status. Recheck troponin fairly similar. Telemetry Aspirin 81 mg daily, Continue metoprolol, lisinopril. Echocardiogram hyperdynamic LV systolic function EF greater than 70%, moderate LVH, severe pulmonary hypertension RVSP 62 mm Hg. (3) Congestive heart failure: Qualifiers: Heart failure chronicity: unspecified Heart failure type: unspecified Qualified Code(s): I50.9 - Heart failure, unspecified Code(s): I50.9 - Heart failure, unspecified Status: Acute Assessment and Plan: Acute on chronic heart failure with preserved ejection fraction right history. Patient remains significantly volume overloaded. Patient claims compliance with medications yet admits indiscretion with his diet and sodium intake. Continue IV diuresis, accurate input and output. Doing very well thus far over 5 L negative past 24 hours. Lasix reduced to IV 20 mg daily due to increasing creatinine, however, suspect he will require more aggressive diuresis provide renal function tolerates. Monitor urine output closely. (4) Hypertension: Qualifiers: Hypertension type: essential hypertension Qualified Code(s): I10 - Essential (primary) hypertension Code(s): I10 - Essential (primary) hypertension Status: Chronic Assessment and Plan: Patient with marked hypertension up to 215/137 mmHg at presentation. Much better controlled at present. (5) Tobacco dependence: Code(s): F17.200 - Nicotine dependence, unspecified, uncomplicated Status: Chronic Assessment and Plan: Smoking cessation counseling. (6) Suspected 2019 novel coronavirus infection: Code(s): Z20.822 - Contact with and (suspected) exposure to COVID-19 Status: Acute Assessment and Plan: Negative COVID. Isolation discontinued. (7) Open leg wound: Qualifiers: Encounter type: initial encounter Laterality: bilateral Qualified Code(s): S81.801A - Unspecified open wound, right lower leg, initial encounter; S81.802A - Unspecified open wound, left lower leg, initial encounter Code(s): S81.809A - Unspecified open wound, unspecified lower leg, initial encounter Status: Acute Assessment and Plan: Per wound care. Remains on broad-spectrum antibiotics. Blood and urine cultures sent. Subjective Date/time seen: Date of service: 12/26/20 12:55 Follow-up for acute on chronic respiratory failure, CHF Diuresing well Breathing improved but still short of breath with any activity. Reduced nasal cannula. BP stable. Complains of pain in his legs. No new issues overnight. Review of Systems Review of Systems: All systems reviewed & are unremarkable except as noted in HPI and below Co
--- NOTE | 2020-12-26 13:04 | PCOTNOTE ---
Attempted therapy session with patient, but patient refused. Therapist explained benefits of therapy and encouraged patient to participate, but patient still refused all ADLs, exercises and transfers.
--- NOTE | 2020-12-26 13:50 | PM.IMPN ---
Progress Note: A&P Assessment and Plan (1) Acute on chronic respiratory failure with hypoxia and hypercapnia: Code(s): J96.21 - Acute and chronic respiratory failure with hypoxia; J96.22 - Acute and chronic respiratory failure with hypercapnia Status: Acute Assessment and Plan: With worsening lethargy and hypercapnia despite BiPAP therapy for [address] Renee and Dr Martinez input. BiPAP settings increased, moved to ICU. See HPI. Test for COVID by PCR. D-dimer 0.61. 12/26/20 13:50 12/24 Patient is a 55-year-old morbidly obese male with a BMI 53 history of congestive heart failure, presumed obstructive sleep apnea, patient presented emergency department on December 22 with a complaint shortness of breath patient was started on IV lasix and placed on BiPAP plan was to diurese the patient however patient was desaturating initial ABG showed CO2 67 be communicated with a electric blasting cap assembler adjusted BiPAP setting and after 2 hours patient was more somnolent and slow to respond, repeat ABG showed CO2 of 90 Dr. Renee electric blasting cap assembler came and saw the patient as patient symptoms were worsening and recommended to transfer the patient ICu and discuss the case with sewing machine mechanic, patient being diuresed, there is suspicion patient with positive COVID-19 being tested an isolated, bilateral lower extremity swelling lower extremity negative for DVT, stasis dermatitis, cellulitis being treated with Zosyn and vancomycin, patient states is feeling much better compared to yesterday not a short of breath, denies any fever or chills, eating his lunch. Patient seen by sewing machine mechanic and Dr. Rneee pulmonology and appreciate 12/25 patient COVID test is negative, patient had difficult time wearing BiPAP last night and his beared prevented good seal and BIPAP kept beeping and he was not able to sleep, however patient is doing well is being diuresed with seen by electric blasting cap assembler and sewing machine mechanic his clinically stable will transfer patient out of ICU to IMU will continue to monitor and diurese the patient, patient will benefit from PT OT 12/26 patient again was not able to wear BIPAP as he is not able to tolerate being morbidly obese, patient was seen by electric blasting cap assembler placed on AVAPS mode currently, and plan is for the patient to apnea link [facility] and will trilogy place, patient is seen by food products tester suspect patient has hypercarbic respiratory failure most likely 2/2 volume overload due to noncompliance with meds and dietary. patient had echo, EF is 70%, patient is being diuresed, will continue to monitory, patient is clinically stable, will transfer patient out of ICU to med-surg, will have PT/OT evaluate patient. (2) Congestive heart failure: Qualifiers: Heart failure chronicity: unspecified Heart failure type: unspecified Qualified Code(s): I50.9 - Heart failure, unspecified Code(s): I50.9 - Heart failure, unspecified Status: Acute Assessment and Plan: Decompensated with generalized edema and acute on chronic SINDY lower extremity swelling. IV Lasix 40mg BID. Low sodium, fluid restricted diet. TSH within normal limits. CXR last evening compared to XR 12/16/20 shows new SINDY airspace opacities pulmonary edema vs pneumonia. Echocardiogram ordered. Continue beta blockade and GHAZALA-I. (3) Edema, peripheral: Code(s): R60.9 - Edema, unspecified Status: Acute Assessment and Plan: Suspect related to sodium indiscretion. Continue aggressive IV lasix therapy. Monitor urine output and renal function. Venous dopplers LE ordered. History of DVT leg last year. (4) Open leg wound: Qualifiers: Encounter type: initial encounter Laterality: bilateral Qualified Code(s): S81.801A - Unspecified open wound, right lower leg, initial encounter; S81.802A - Unspecified open wound, left lower leg
--- NOTE | 2020-12-26 16:10 | PC.NURSE ---
Patient received from ICU per wheelchair.
[2020-12-26 20:36] LABS: Vancomycin Trough 16.5 ug/mL (10.0-20.0)
[2020-12-27] VITALS (31 sets, daily range): BP systolic 106–147; BP diastolic 64–83; PULSE 75–103; RESP 16–22; TEMP 36–36.4; O2SAT 86–100
--- NOTE | 2020-12-27 01:12 | PCRCNOTE ---
patient refused to wear the Trilogy unit; Also, the patient refused the apnea study and stated that staff will not stop bothering him; RN aware
[2020-12-27] MEDS: CENTRAL LINE FLUSH 10 ML IV PUSH ×3 (05:14→20:53)
--- NOTE | 2020-12-27 08:10 | PM.PNPUL ---
Progress Note: A&P Assessment and Plan (1) Acute on chronic respiratory failure with hypoxia and hypercapnia: Code(s): J96.21 - Acute and chronic respiratory failure with hypoxia; J96.22 - Acute and chronic respiratory failure with hypercapnia Status: Acute (2) Obesity hypoventilation syndrome: Code(s): E66.2 - Morbid (severe) obesity with alveolar hypoventilation Status: Acute Assessment and Plan: 12/23 Patient with acute on chronic respiratory failure with ABG on 3L 7.35/68/82 and then repeat on BiPAp 09/14 7.24/91/64 on 30%. I have emperically changed him to 25/8, 40% and spoke with Dr. Martinez regarding transfer to ICU for closer monitoring and possible intubation. May consider AVAPS mode in ICU. ABG ordered in one hour. Etiology of acute on chronic respiratory failure includes obesity hypoventilation syndrome, sepsis (LE cellulitis, respiratory infection, COVID, Flu), fluid overload, PE, and untreated LIDIA. Agree with blood cultures, vanco and zosyn emperically. Lasix as toelrated by hemodynamics and renal function. D dimer is positive and would perform LE dopplers and if positive treat for DVT/PE and if negative CTA if respiratory status is stabilizes. He will need emperic BiPAP treatment at night and when naps while in hospital until her can have a sleep study as an outpatient. Agree with echocardiogram to assess LV, RV function and size. No wheezes on exam and although he is smoker I do not see emphysema on CT scan opf chest from 12/21/2019. I will emperically place on albuterol 2.5 neb Q 6, ipratroprium 05 mg neb Q 6 and budesonide .5 mg neb Q 12. I do not think he need systemic steroids. 12/24 Mental status improved today. Continue current BiPAP 22/8, 40% as getting good TV of 600 and ABG improved to 7.34/71/108. Comfortable setting per patient. CXR without focal consolidations. No wheezes on exam on albuterol, ipratroprium and budesonide nebs. D dimer positive with negative LE dopplers and CTA of chest without PE on 12/20/20. Agree with no CTA now and no need for full anticoagulation. Echo when SARS-CoV-2 negative and diuresis as tolerated by renal and cardiac systems. 12/25 SARS-CoV-2 negative. Patient wore BiPAP intermittantly as high leak with rocha and alrms were waking him. ABG 7.27/83/101 on rate of 20, 22/8, 45%. More awake on high flow nasal cannula 35L and 60% with sats 99%. On entering room patient sleeping with witnessed obstructive events with aurousals and desat to 97%. 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 Lasix 40 IV BID started for diuresis. Shaved later in day. DC nebulized budesonide. OOB to chair. Echo was TDS with normal LV function with EF >70, Grade 1 diastolic dysfunction, severely enlarged RA, RV probably mildly enlarged with mildly reduced function, mild TR with RVSP 62. Patient with morbid obesity and chronic respiratory failure due to obesity hypoventilation syndrome with ABG on admit of 7.35/68/82 on 3 L. CPAP ruled out as will not treat hypercarbia and patient not tolerating BiPAP as to high of leak and pressures. Will place on AVAPS mode with RR 20, TV 500, EPAP 8, min inspiratory pressure 9, max inspiratory pressure 30, 45%. ABG in morning prior to removal of AVAPS. Home NIV orders signed. 12/26 Did not tolerate BiPAP (leak and pressures too high) so placed on AVAPS mode with rate 20, TV 500, EPAP8, Inspire min 9, inspire max 30, rise 5, I time 1.00, 40%. He rips off machine at times and refuses to wear at times but today he tells me he will continue to try and use the machine. ABG on high flow NC 35L and 45% was 7.33/66/53 this morning. Cr 1.30 and lasix decreased to 20 IV Q day. Home unit set up at AVAPS AE RR 18, TV 450, Min EPAP 5, max EPAP14, PS min 5, PS max 25, max pressure 35, I time 1.0, rise 5. 12/27 Refused to wear home AVAPS overnight, pulled out hernandez, IVs and t
[2020-12-27] MEDS: IPRATROPIUM BR 0.02% INH SOLN 0.5 MG/2.5 ML VIAL INHALATION ×3 (08:27→19:10)
[2020-12-27] MEDS: ALBUTEROL SULFATE NEB 2.5 MG/0.5 ML INH INHALATION ×3 (08:27→19:09)
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
[2020-12-27] MEDS: lisinopriL 20 MG TABLET 40 MG PO (08:40)
[2020-12-27] MEDS: METOPROLOL TARTRATE 12.5 MG TABLET PO ×2 (08:40→20:53)
[2020-12-27] MEDS: ENOXAPARIN 40 MG/0.4 ML SYRINGE SUB-Q (08:40)
[2020-12-27] MEDS: MAGNESIUM OXIDE 200 MG TABLET PO ×2 (08:41→20:52)
[2020-12-27] MEDS: ASPIRIN 81 MG CHEWABLE TABLET PO (08:41)
[2020-12-27] MEDS: TOLNAFTATE 1% POWDER 45 GM BTL 1 APPLIC TOPICAL ×2 (08:43→20:52)
--- NOTE | 2020-12-27 09:23 | PCRCNOTE ---
[facility] will be here this morning to fit patient for a new mask to be used with his Trilogy.
[2020-12-27] MEDS: ALTEPLASE 2 MG VIAL (CATHFLO) IV PUSH ×2 (09:36)
[2020-12-27 09:45] LABS: Alveolar/Arterial O2 Gradient 273.2 mmHg; Base Excess ABG 3.9 mEq/l (+/-2.0); Fractional Inspired Oxygen 60 %; HCO3 ABG 32.7 mEq/l (22.0-26.0); Oxygen Content ABG 22.9 %vol (16.0-22.0); Oxyhemoglobin 93.7 % THb (90.0-100.0); PO2 ABG 82.7 mmHg (80.0-100.0); PO2 FiO2 Ratio Arterial Blood 1.38 %; Total Hemoglobin 17.4 g/dL (12.0-18.0); pH ABG 7.317 (7.350-7.450)
[2020-12-27 09:46] LABS: Modified Allen's Test Pass; PCO2 ABG 65.4 mmHg (35.0-45.0); Site Drawn LEFT RADIAL
[2020-12-27 09:47] LABS: Device OTHER DEVICE
[2020-12-27 09:51] LABS: Hematocrit 53.9 % (42.0-52.0); Hemoglobin 16.8 g/dL (14.0-18.0); Mean Corpuscular HGB Conc 31.2 g/dl (32-36); Mean Corpuscular Hemoglobin 29.5 pg (26-34); Mean Corpuscular Volume 94.7 fl (80-100); Mean Platelet Volume 10.4 fl (7.4-10.4); Platelet Count Result 258 k/mm3 (150-375); Red Blood Count 5.69 M/mm3 (4.6-6.20); Red Cell Distribution Width 15.1 % (11.5-14.5); White Blood Count 10.6 K/mm3 (4.5-10.0)
[2020-12-27 10:09] LABS: Anion Gap 2 mmol/L (8-16); Blood Urea Nitrogen 26 mg/dL (9-20); Calcium 9.2 mg/dL (8.4-10.2); Carbon Dioxide 35 mmol/L (22-30); Chloride 102 mmol/L (98-107); Estimated CRCL calculation 76 ml/min; Estimated Glomerular Filt Rate 57; Glucose 108 mg/dL (75-110); Magnesium 2.4 mg/dL (1.6-2.3); Potassium 3.9 mmol/L (3.4-5.0); Sodium 139 mmol/L (137-145)
--- NOTE | 2020-12-27 10:43 | PC.NURSE ---
Pt transferring to IMU room 205. Report given to ALEXANDER Ray.
--- NOTE | 2020-12-27 13:05 | PM.PNCARD ---
Progress Note: A&P Additional Plan 55-year-old man with: Significant volume overload with obesity hypoventilation syndrome. Does not have any real left-sided heart failure with hyperdynamic looking ventricle on echo. Most of what we are seeing here is volume overload because of secondary pulmonary hypertension related to obesity hypoventilation syndrome. With improvement in respiratory status as mentioned by the pulmonology system sales consultant he appears to be auto diuresing. There do not appear to be any other more specific cardiac recommendations to make in this setting. We will follow as needed. Ben Wright MD [facility] Subjective Date/time seen: Date of service: 12/27/20 13:05 Interval history: 12/23 this is a 55-year-old man with a history of morbid obesity, hypertension, congestive heart failure who presented to the emergency room on 12/22 with worsening lower extremity swelling and pain. Patient signed out of the hospital 2 days previously from the ER with positive troponins and lower extremity edema. Patient is now lethargic and I am unable to hand obtain a history. Patient was admitted to the floor with a blood gas of 7.35/68/821 3 L. this morning patient he came lethargic and was empirically placed on BiPAP and after 2 hours of BiPAP 12/5 his blood gas was 7.24/91/64 on 30% FiO2. I went and evaluated the patient and he remained very lethargic you would open his eyes to sternal rub. I recommended transfer to the ICU and empirically placed him on BiPAP 25/8 in 40%. His saturations at the time were 97%. In ICU wore BiPAp an dmental status improved, tolerated break from BiPAP for dinner. LE Dopplers negative. Flu swab negative. 12/24 Currently on BiPAP, following simple commands, ABG on BiPAP 22/8 and 40% 7.34/71/108. In 2650/out 2650 on acetazolamide. 12/25 SARS-CoV-2 negative. Patient wore BiPAP intermittantly as high leak with pressures and rocha and alarms were waking him. More awake on high flow nasal cannula 35L and 60% with sats 99%. On entering room patient sleeping with witnessed obstructive events with aurousals and desat to 97%. 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 Lasix 40 IV BID started. Cr 1.10. Minus 2760. OOB to chair later in day. Shaved his rocha. 12/26 Did not tolerate BiPAP (leak and pressures too high) so placed on AVAPS mode with rate 20, TV 500, EPAP8, Inspire min 9, inspire max 30, rise 5, I time 1.00, 40%. He rips off machine at times and refuses to wear at times but today he tells me he will continue to try and use the machine. ABG on high flow NC 35L and 45% was 7.33/66/53 this morning. Cr 1.30 and lasix decreased to 20 IV Q day. Minus 3680. Home unit set up at AVAPS AE RR 18, TV 450, Min EPAP 5, max EPAP14, PS min 5, PS max 25, max pressure 35, I time 1.0, rise 5. 12/27 Refused to wear home AVAPS overnight, pulled out hernandez, IVs and takes off oxygen. On 5 L with sats 96% throughout night. This morning he was in chair on room air with obvious obstructive respiratory events and sats 50's. Placed him on AVAPS AE with 10 L bleed in and sats increased to 91-96%. He is lethargic but following simple commands. DC lasix as appears to be autodiuresing. Echo 12/25: Summary 1. Left ventricular systolic function is hyperdynamic, estimated at >70%. 2. There is moderately increased left ventricular wall thickness. 3. The left ventricular diastolic function is grade I diastolic dysfunction. 4. Right atrial chamber dimension is severely enlarged. 5. Right ventricular chamber dimension is probably mildly enlarged, although not well visualized. 6. Right ventricular systolic function is mildly reduced. 7. There is mild tricuspid valve regurgitation. 8. Severe pulmonary hypertension, estimated pulmonary arterial systolic pressure is 62 mmHg. 9. Technically difficult study with limited views. Definney c
--- NOTE | 2020-12-27 14:56 | PCPTNOTE ---
The PT treatment was unable to be completed today due to patient refusal. Will continue per Plan of Care frequency and duration.
--- NOTE | 2020-12-27 17:13 | PM.IMPN ---
Progress Note: A&P Assessment and Plan (1) Acute on chronic respiratory failure with hypoxia and hypercapnia: Code(s): J96.21 - Acute and chronic respiratory failure with hypoxia; J96.22 - Acute and chronic respiratory failure with hypercapnia Status: Acute Assessment and Plan: With worsening lethargy and hypercapnia despite BiPAP therapy for [address] Renee and Dr Martinez input. BiPAP settings increased, moved to ICU. See HPI. Test for COVID by PCR. D-dimer 0.61. 12/27/20 17:13 12/24 Patient is a 55-year-old morbidly obese male with a BMI 53 history of congestive heart failure, presumed obstructive sleep apnea, patient presented emergency department on December 22 with a complaint shortness of breath patient was started on IV lasix and placed on BiPAP plan was to diurese the patient however patient was desaturating initial ABG showed CO2 67 be communicated with a global manager adjusted BiPAP setting and after 2 hours patient was more somnolent and slow to respond, repeat ABG showed CO2 of 90 Dr. Renee global manager came and saw the patient as patient symptoms were worsening and recommended to transfer the patient ICu and discuss the case with applications scientist, patient being diuresed, there is suspicion patient with positive COVID-19 being tested an isolated, bilateral lower extremity swelling lower extremity negative for DVT, stasis dermatitis, cellulitis being treated with Zosyn and vancomycin, patient states is feeling much better compared to yesterday not a short of breath, denies any fever or chills, eating his lunch. Patient seen by applications scientist and Dr. Renee pulmonology and appreciate 12/25 patient COVID test is negative, patient had difficult time wearing BiPAP last night and his beared prevented good seal and BIPAP kept beeping and he was not able to sleep, however patient is doing well is being diuresed with seen by global manager and applications scientist his clinically stable will transfer patient out of ICU to IMU will continue to monitor and diurese the patient, patient will benefit from PT OT 12/26 patient again was not able to wear BIPAP as he is not able to tolerate being morbidly obese, patient was seen by global manager placed on AVAPS mode currently, and plan is for the patient to apnea link [facility] and [facility], patient is seen by special education bus driver suspect patient has hypercarbic respiratory failure most likely 2/2 volume overload due to noncompliance with meds and dietary. patient had echo, EF is 70%, patient is being diuresed, will continue to monitory, patient is clinically stable, will transfer patient out of ICU to med-surg, will have PT/OT evaluate patient. 12/27 patient was transferred out of ICU yesterday to medical floor however patient was unable to wear BiPAP last and is quite short of breath patient was seen by global manager recommending to place the patient on continuous BiPAP, transfer the patient to IMU, also yesterday evening patient kept tugging on his Wong, eventually Wong was removed and there was blood on the penis patient with CBI last night and hematuria has improved, will continue BiPAP and monitor this will also help auto diurese the patient will continue to monitor (2) Congestive heart failure: Qualifiers: Heart failure chronicity: unspecified Heart failure type: unspecified Qualified Code(s): I50.9 - Heart failure, unspecified Code(s): I50.9 - Heart failure, unspecified Status: Acute Assessment and Plan: Decompensated with generalized edema and acute on chronic SINDY lower extremity swelling. IV Lasix 40mg BID. Low sodium, fluid restricted diet. TSH within normal limits. CXR last evening compared to XR 12/16/20 shows new SINDY airspace opacities pulmonary edema vs pneumonia. Echocardiogram ordered. Continue beta blockade and GHAZALA-I. (3) Edema, peripheral: Code(s): R60.9
[2020-12-28] VITALS (31 sets, daily range): BP systolic 119–148; BP diastolic 50–82; PULSE 68–96; RESP 20–26; TEMP 35.6–36.4; O2SAT 93–99
[2020-12-28] MEDS: ALBUTEROL SULFATE NEB 2.5 MG/0.5 ML INH INHALATION ×4 (01:24→19:43)
[2020-12-28] MEDS: IPRATROPIUM BR 0.02% INH SOLN 0.5 MG/2.5 ML VIAL INHALATION ×4 (01:24→19:43)
[2020-12-28 04:43] LABS: Alveolar/Arterial O2 Gradient 135.6 mmHg; Base Excess ABG 4.6 mEq/l (+/-2.0); Fractional Inspired Oxygen 40 %; HCO3 ABG 33.2 mEq/l (22.0-26.0); Oxygen Content ABG 21.8 %vol (16.0-22.0); Oxygen Saturation ABG 93.5 % (95.0-100.0); PO2 ABG 74.4 mmHg (80.0-100.0); PO2 FiO2 Ratio Arterial Blood 1.86 %; Total Hemoglobin 16.7 g/dL (12.0-18.0); pH ABG 7.324 (7.350-7.450)
[2020-12-28 04:45] LABS: PCO2 ABG 65.4 mmHg (35.0-45.0); Site Drawn RIGHT BRACHIAL
[2020-12-28 04:46] LABS: Device OTHER DEVICE
[2020-12-28] MEDS: CENTRAL LINE FLUSH 10 ML IV PUSH ×3 (05:17→21:18)
--- NOTE | 2020-12-28 08:00 | PM.PNPUL ---
Progress Note: A&P Assessment and Plan (1) COPD (chronic obstructive pulmonary disease): Code(s): J44.9 - Chronic obstructive pulmonary disease, unspecified Status: Acute Assessment and Plan: - Start ipratropium 0.5 mg nebulized q.6 hours - start Pulmicort 1.0 mg nebulized q.12 hours - continue albuterol 2.5 mg q.6 hours. (2) Obesity hypoventilation syndrome: Code(s): E66.2 - Morbid (severe) obesity with alveolar hypoventilation Status: Acute Assessment and Plan: Continue AVAPS noninvasive ventilation with his current settings: AVAPS mode with rate 20, TV 500, EPAP8, Inspire min 9, inspire max 30, rise 5, I time 1.00, 40% consider decreasing dose or frequency of Lasix Will resume diamox 500 mg p.o. q.12 hours (3) LIDIA (obstructive sleep apnea): Code(s): G47.33 - Obstructive sleep apnea (adult) (pediatric) Status: Acute (4) Edema, peripheral: Code(s): R60.9 - Edema, unspecified Status: Acute (5) Cellulitis: Code(s): L03.90 - Cellulitis, unspecified Status: Acute Assessment and Plan: the patient grew stenotrophomonas maltophilia from skin culture. He has clinical evidence of cellulitis. I would recommend discontinuing Levaquin, vancomycin and Zosyn. I would recommend starting him on renally dosed Bactrim. Subjective Date/time seen: 12/28/20 08:00 Interval history: No complaints. Asking to go home but still seems a bit lethargic, falls asleep easily during conversation. Denies productive. CXR shows bilateral atelectasis, no clear evidence of pneumonia. Blood cultures are negative. Skin culture showing Stenotrophomonas with evidence of cellulitis. ABG still showing mild hypercarbia when compared to baseline. Still not very compliant with AVAPS at night. Current settings:AVAPS mode with rate 20, TV 500, EPAP8, Inspire min 9, inspire max 30, rise 5, I time 1.00, 40% Review of Systems Review of Systems: All systems reviewed & are unremarkable except as noted in HPI and below Exam Const: General: cooperative, healthy appearing and in distress Nutritional Appearance: obese morbidly obese Orientation/consciousness: oriented to person, oriented to place and oriented to time Other: Lethragic today, speech is normally somewhat slow and garbled HENMT: Head: normal to inspection Ears: hearing grossly normal bilaterally Mouth: Yes Normal oral and palatal mucosa present Eyes: General: appearance normal, both eyes and all related structures Neck: Neck: normal visual inspection and no JVD Chest: Chest palpation & inspection: normal inspection of the chest Resp: Effort & Inspection: abnormal respiratory effort Auscultation: no crackles, no rales, no rhonchi, no wheezes and diminished lung sounds Cardio: Jugular venous distension: no JVD Rate: regular rate GI: Inspection: normal to inspection and distended Auscultation: normal bowel sounds Skin: General skin exam: normal color, rashes and/or lesions noted and erythema Neuro: General: oriented to person, oriented to place and oriented to time Other: lethargic Extrem: General: normal to inspection and edema Psych: Appearance: grossly normal Mental Status: mental status grossly abnormal Objective Data Vital Signs Vital Signs: Vital Signs - 24 hr 12/28/20 08:24 12/28/20 08:31 12/28/20 08:41 Temperature 36.3 C L Pulse Rate 90 85 88 Respiratory Rate 26 H 20 20 Blood Pressure 133/62 Pulse Oximetry 97 96 98 12/28/20 10:00 12/28/20 10:06 12/28/20 11:53 Temperature 35.7 C L Pulse Rate 68 91 92 Respiratory Rate 24 H Blood Pressure 119/50 L Pulse Oximetry 97 12/28/20 12:00 12/28/20 13:52 12/28/20 14:00 Temperature Pulse Rate 78 76 83 Respiratory Rate 20 20 Blood Pressure Pulse Oximetry 95 97 12/28/20 14:05 12/28/20 14:12 12/28/20 16:00 Temperature Pulse Rate 80 78 96 Respiratory Rate 20 20 24 H Blood Pressure Pulse Oximetry 95 95
[2020-12-28] MEDS: lisinopriL 20 MG TABLET 40 MG PO (10:05)
[2020-12-28] MEDS: METOPROLOL TARTRATE 12.5 MG TABLET PO ×2 (10:06→21:13)
[2020-12-28] MEDS: MAGNESIUM OXIDE 200 MG TABLET PO ×2 (10:06→21:13)
[2020-12-28] MEDS: ASPIRIN 81 MG CHEWABLE TABLET PO (10:07)
--- NOTE | 2020-12-28 10:51 | PM.PNCARD ---
Progress Note: A&P Assessment and Plan (1) Congestive heart failure: Qualifiers: Heart failure chronicity: unspecified Heart failure type: unspecified Qualified Code(s): I50.9 - Heart failure, unspecified Code(s): I50.9 - Heart failure, unspecified Status: Acute Assessment and Plan: Acute on chronic right heart failure with preserved ejection fraction secondary to obesity hypoventilation syndrome and pulmonary hypertension. Patient remains significantly volume overloaded. Had been diuresing well, Lasix discontinued for this and rising creatinine, but now diuresis is tapering off. Resume Lasix 40 mg IV push b.i.d. Daily BMP (2) Acute on chronic respiratory failure with hypoxia and hypercapnia: Code(s): J96.21 - Acute and chronic respiratory failure with hypoxia; J96.22 - Acute and chronic respiratory failure with hypercapnia Status: Acute Assessment and Plan: Acute on chronic hypoxic and hypercapnic respiratory failure stabilizing on BiPAP/NIPPV, bronchodilators, high-flow nasal cannula Underlying untreated obstructive sleep apnea, hypoventilation, COPD complicated by heart failure with preserved ejection fraction. Continue supportive therapy per pulmonology. Probable LIDIA. Workup once stabilized. Sleepy and confused this morning but blood gas appears at baseline. (3) Elevated troponin: Code(s): R79.89 - Other specified abnormal findings of blood chemistry Status: Acute Assessment and Plan: Trop up to 0.3. Per review of laboratory studies in the system he has rather chronic troponin elevations more so in setting of acute hypoxic and hypercapnic respiratory failure, demand ischemia type 2 infarct not secondary to acute coronary syndrome. EKG abnormal possible old AR. May consider ischemic evaluation as an outpatient or prior to discharge based on clinical status. Echocardiogram hyperdynamic LV systolic function EF> 70%, moderate LVH, severe pulmonary hypertension RVSP 62 mm Hg. Aspirin 81 mg daily, Continue metoprolol, lisinopril. (4) Hypertension: Qualifiers: Hypertension type: essential hypertension Qualified Code(s): I10 - Essential (primary) hypertension Code(s): I10 - Essential (primary) hypertension Status: Chronic Assessment and Plan: Patient with marked hypertension up to 215/137 mmHg at presentation. Much better controlled at present. (5) Open leg wound: Qualifiers: Encounter type: initial encounter Laterality: bilateral Qualified Code(s): S81.801A - Unspecified open wound, right lower leg, initial encounter; S81.802A - Unspecified open wound, left lower leg, initial encounter Code(s): S81.809A - Unspecified open wound, unspecified lower leg, initial encounter Status: Acute Assessment and Plan: Per wound care. Remains on broad-spectrum antibiotics. Blood and urine cultures sent. Subjective Date/time seen: 12/28/20 10:51 Interval history: Follow-up for obesity/hypoventilation syndrome, right left heart failure. Echo 12/25: LV hyperdynamic, estimated at >70%, moderate LVH, diastolic dysfunction, right atrial and right ventricular enlargement with right ventricular hypokinesis, mild TR, severe pulmonary hypertension RVSP 62 mmHg.. 12/23 this is a 55-year-old man with a history of morbid obesity, hypertension, congestive heart failure who presented to the emergency room on 12/22 with worsening lower extremity swelling and pain. Patient signed out of the hospital 2 days previously from the ER with positive troponins and lower extremity edema. Patient is now lethargic and I am unable to hand obtain a history. Patient was admitted to the floor with a blood gas of 7.35/68/821 3 L. this morning patient he came lethargic and was empirically placed on BiPAP and a
--- NOTE | 2020-12-28 11:35 | PCPTNOTE ---
Jb stated I ordered another cup of coffee and haven't received it. I do not want to do anything until I get my cup of coffee. Informed Pt, RN did order cup of coffee after physician approved it due to him being on fluid restrictions. Encouraged Pt to work with therapy and maybe by the time he is done, his coffee will be there. Pt stated I don't believe you, as soon as I work with you, I won't get my cup of coffee. Explained to the Pt his coffee will be coming regardless if he works with therapy or not. Informed him of the benefits of working with therapy, reinforced his physician wants him to work with therapy, and lastly informed him, due to his refusing of therapy we will be forced to discharge him from therapy if he continues to refuse therapy. At which point Pt then stated I need to get up and move because I'm so sore. Reeducated Pt, therapy is there to help him become stronger and improve his functional mobility. Pt then agreed to ambulate to bathroom and back. Once back to his recliner, Assisted Pt with getting situated. Upon leaving Pt's room coffee was delivered by dietary.
[2020-12-28] MEDS: ENOXAPARIN 40 MG/0.4 ML SYRINGE SUB-Q (13:49)
[2020-12-28] MEDS: FUROSEMIDE INJ 40 MG/4 ML VIAL IV PUSH ×2 (13:50→21:14)
[2020-12-28] MEDS: TOLNAFTATE 1% POWDER 45 GM BTL 1 APPLIC TOPICAL ×2 (14:08→21:24)
[2020-12-29] VITALS (27 sets, daily range): BP systolic 127–157; BP diastolic 77–95; PULSE 74–103; RESP 16–24; TEMP 35.7–37; O2SAT 89–98
[2020-12-29] MEDS: ALBUTEROL SULFATE NEB 2.5 MG/0.5 ML INH INHALATION ×4 (01:37→19:43)
[2020-12-29] MEDS: IPRATROPIUM BR 0.02% INH SOLN 0.5 MG/2.5 ML VIAL INHALATION ×4 (01:37→19:43)
[2020-12-29] MEDS: levoFLOXacin 500 MG/D5W 100 ML 500 MG/100 ML BAG 100 MG IVPB (01:42)
[2020-12-29] MEDS: CENTRAL LINE FLUSH 20 ML IV PUSH (04:39)
[2020-12-29] MEDS: CENTRAL LINE FLUSH 10 ML IV PUSH ×2 (04:40→13:43)
[2020-12-29 05:27] LABS: Blood Urea Nitrogen 27 mg/dL (9-20); Carbon Dioxide > 40 mmol/L (22-30); Chloride 98 mmol/L (98-107); Estimated CRCL calculation 65 ml/min; Estimated Glomerular Filt Rate 48; Glucose 101 mg/dL (75-110); Potassium 3.8 mmol/L (3.4-5.0); Sodium 141 mmol/L (137-145)
[2020-12-29] MEDS: BUDESONIDE RESPULE NEB 0.5 MG/2 ML AMP 1 MG INHALATION ×2 (08:14→19:43)
--- NOTE | 2020-12-29 09:14 | PM.PNPUL ---
Progress Note: A&P Assessment and Plan (1) COPD (chronic obstructive pulmonary disease): Code(s): J44.9 - Chronic obstructive pulmonary disease, unspecified Status: Acute Assessment and Plan: - Start ipratropium 0.5 mg nebulized q.6 hours - start Pulmicort 1.0 mg nebulized q.12 hours - continue albuterol 2.5 mg q.6 hours. (2) Obesity hypoventilation syndrome: Code(s): E66.2 - Morbid (severe) obesity with alveolar hypoventilation Status: Acute Assessment and Plan: Continue AVAPS noninvasive ventilation with his current settings: AVAPS mode with rate 20, TV 500, EPAP8, Inspire min 9, inspire max 30, rise 5, I time 1.00, 40% consider decreasing dose or frequency of Lasix Will resume diamox 500 mg p.o. q.12 hours (3) LIDIA (obstructive sleep apnea): Code(s): G47.33 - Obstructive sleep apnea (adult) (pediatric) Status: Acute (4) Edema, peripheral: Code(s): R60.9 - Edema, unspecified Status: Acute (5) Cellulitis: Code(s): L03.90 - Cellulitis, unspecified Status: Acute Assessment and Plan: the patient grew stenotrophomonas maltophilia from skin culture. He has clinical evidence of cellulitis. I would recommend discontinuing Levaquin, vancomycin and Zosyn. I would recommend starting him on renally dosed Bactrim. Subjective Date/time seen: 12/29/20 09:14 Interval history: Appears to be more awake and alert today. He claims he wore his AVAPS NIV for many hours last night. There were some periods of brief hypoxia at 89% but he is still stable on 5 L per nasal cannula. Review of Systems Review of Systems: All systems reviewed & are unremarkable except as noted in HPI and below Exam Const: General: cooperative, healthy appearing and in distress Nutritional Appearance: obese morbidly obese Orientation/consciousness: oriented to person, oriented to place and oriented to time Other: Lethragic today, speech is normally somewhat slow and garbled HENMT: Head: normal to inspection Ears: hearing grossly normal bilaterally Mouth: Yes Normal oral and palatal mucosa present Eyes: General: appearance normal, both eyes and all related structures Neck: Neck: normal visual inspection and no JVD Chest: Chest palpation & inspection: normal inspection of the chest Resp: Effort & Inspection: abnormal respiratory effort Auscultation: no crackles, no rales, no rhonchi, no wheezes and diminished lung sounds Cardio: Jugular venous distension: no JVD Rate: regular rate GI: Inspection: normal to inspection and distended Auscultation: normal bowel sounds Skin: General skin exam: normal color, rashes and/or lesions noted and erythema Neuro: General: oriented to person, oriented to place and oriented to time Other: lethargic Extrem: General: normal to inspection and edema Psych: Appearance: grossly normal Mental Status: mental status grossly abnormal Objective Data Vital Signs Vital Signs: Vital Signs - 24 hr 12/28/20 10:00 12/28/20 10:06 12/28/20 11:53 Temperature 35.7 C L Pulse Rate 68 91 92 Respiratory Rate 24 H Blood Pressure 119/50 L Pulse Oximetry 97 12/28/20 12:00 12/28/20 13:52 12/28/20 14:00 Temperature Pulse Rate 78 76 83 Respiratory Rate 20 20 Blood Pressure Pulse Oximetry 95 97 12/28/20 14:05 12/28/20 14:12 12/28/20 16:00 Temperature Pulse Rate 80 78 96 Respiratory Rate 20 20 24 H Blood Pressure Pulse Oximetry 95 95 12/28/20 16:14 12/28/20 18:00 12/28/20 19:46 Temperature 35.6 C L Pulse Rate 83 96 88 Respiratory Rate 24 H 20 Blood Pressure 148/81 H Pulse Oximetry 95 97 12/28/20 19:47 12/28/20 20:00 12/28/20 21:13 Temperature 36.2 C L Pulse Rate 87 92 92 Respiratory Rate 20 20 Blood Pressure 146/82 H Pulse Oximetry 95 12/28/20 22:00 12/28/20 22:31 12/28/20 23:19 Temperature 36.4 C Pulse Rate 94 88 89 Respiratory Rate 22 H Blood Pressure 128/64
[2020-12-29 10:14] LABS: Hematocrit 51.6 % (42.0-52.0); Hemoglobin 16.1 g/dL (14.0-18.0); Mean Corpuscular HGB Conc 31.2 g/dl (32-36); Mean Corpuscular Hemoglobin 29.2 pg (26-34); Mean Corpuscular Volume 93.5 fl (80-100); Mean Platelet Volume 10.5 fl (7.4-10.4); Platelet Count Result 274 k/mm3 (150-375); Red Blood Count 5.52 M/mm3 (4.6-6.20); Red Cell Distribution Width 14.7 % (11.5-14.5)
[2020-12-29] MEDS: ASPIRIN 81 MG CHEWABLE TABLET PO (10:36)
[2020-12-29] MEDS: POTASSIUM CHLORIDE 20 MEQ TABLET PO (10:36)
[2020-12-29] MEDS: acetaZOLAMIDE TAB 250 MG TABLET 500 MG PO ×2 (10:36→16:55)
[2020-12-29] MEDS: lisinopriL 20 MG TABLET 40 MG PO (10:37)
[2020-12-29] MEDS: ENOXAPARIN 40 MG/0.4 ML SYRINGE SUB-Q (10:38)
[2020-12-29] MEDS: FUROSEMIDE INJ 40 MG/4 ML VIAL IV PUSH (10:38)
[2020-12-29] MEDS: MAGNESIUM OXIDE 200 MG TABLET PO ×2 (10:39→20:41)
[2020-12-29] MEDS: TOLNAFTATE 1% POWDER 45 GM BTL 1 APPLIC TOPICAL ×2 (10:40→20:43)
[2020-12-29] MEDS: METOPROLOL TARTRATE 12.5 MG TABLET PO ×2 (10:41→20:41)
--- NOTE | 2020-12-29 11:04 | PM.PNCARD ---
Progress Note: A&P Assessment and Plan (1) Congestive heart failure: Qualifiers: Heart failure chronicity: unspecified Heart failure type: unspecified Qualified Code(s): I50.9 - Heart failure, unspecified Code(s): I50.9 - Heart failure, unspecified Status: Acute Assessment and Plan: Acute on chronic right heart failure with preserved ejection fraction secondary to obesity hypoventilation syndrome and pulmonary hypertension. Patient remains significantly volume overloaded. Had been diuresing well, Lasix discontinued for this and rising creatinine, but diuresis tapered off and Lasix resumed 12/28/2020 at Lasix 40 mg IV push b.i.d. Will reduce to 40 mg once daily because of rising creatinine Daily BMP Counseled patient about the etiology of his CHF. (2) Acute on chronic respiratory failure with hypoxia and hypercapnia: Code(s): J96.21 - Acute and chronic respiratory failure with hypoxia; J96.22 - Acute and chronic respiratory failure with hypercapnia Status: Acute Assessment and Plan: Acute on chronic hypoxic and hypercapnic respiratory failure stabilizing on BiPAP/NIPPV, bronchodilators, high-flow nasal cannula Underlying untreated obstructive sleep apnea, hypoventilation, COPD complicated by heart failure with preserved ejection fraction. Continue supportive therapy per pulmonology. Probable LIDIA. Workup once stabilized. (3) Elevated troponin: Code(s): R79.89 - Other specified abnormal findings of blood chemistry Status: Acute Assessment and Plan: Trop up to 0.3. Per review of laboratory studies in the system he has rather chronic troponin elevations more so in setting of acute hypoxic and hypercapnic respiratory failure, demand ischemia type 2 infarct not secondary to acute coronary syndrome. EKG abnormal possible old CT. May consider ischemic evaluation as an outpatient or prior to discharge based on clinical status. Echocardiogram hyperdynamic LV systolic function EF> 70%, moderate LVH, severe pulmonary hypertension RVSP 62 mm Hg. Aspirin 81 mg daily, Continue metoprolol, lisinopril. (4) Hypertension: Qualifiers: Hypertension type: essential hypertension Qualified Code(s): I10 - Essential (primary) hypertension Code(s): I10 - Essential (primary) hypertension Status: Chronic Assessment and Plan: Patient with marked hypertension up to 215/137 mmHg at presentation. Much better controlled at present. (5) Open leg wound: Qualifiers: Encounter type: initial encounter Laterality: bilateral Qualified Code(s): S81.801A - Unspecified open wound, right lower leg, initial encounter; S81.802A - Unspecified open wound, left lower leg, initial encounter Code(s): S81.809A - Unspecified open wound, unspecified lower leg, initial encounter Status: Acute Assessment and Plan: Per wound care. Remains on broad-spectrum antibiotics. Blood and urine cultures sent. Subjective Date/time seen: 12/29/20 11:04 Interval history: Follow-up for obesity/hypoventilation syndrome, right left heart failure. Echo 12/25: LV hyperdynamic, estimated at >70%, moderate LVH, diastolic dysfunction, right atrial and right ventricular enlargement with right ventricular hypokinesis, mild TR, severe pulmonary hypertension RVSP 62 mmHg.. 12/23 this is a 55-year-old man with a history of morbid obesity, hypertension, congestive heart failure who presented to the emergency room on 12/22 with worsening lower extremity swelling and pain. Patient signed out of the hospital 2 days previously from the ER with positive troponins and lower extremity edema. Patient is now lethargic and I am unable to hand obtain a history. Patient was admitted to the floor with a blood gas of
--- NOTE | 2020-12-29 15:14 | PC.NURSE ---
This patient, Jb Gamboa, was transferred to [formerly [facility] ] on 12/29/20 at 1505. Personal belongings sent with patient. Report given to [[place] ]. Appropriate documentation sent with patient.
--- NOTE | 2020-12-29 15:20 | PC.NURSE ---
This patient, Jb Gamboa, was received from IMU on 12/29/20 at 1531. Patient/family oriented to unit policies and routines. Report received from ALEXANDER Freire.
--- NOTE | 2020-12-29 16:08 | PM.IMPN ---
Progress Note: A&P Assessment and Plan (1) Acute on chronic respiratory failure with hypoxia and hypercapnia: Code(s): J96.21 - Acute and chronic respiratory failure with hypoxia; J96.22 - Acute and chronic respiratory failure with hypercapnia Status: Acute Assessment and Plan: With worsening lethargy and hypercapnia despite BiPAP therapy for [address] Renee and Dr Martinez input. BiPAP settings increased, moved to ICU. See HPI. Test for COVID by PCR. D-dimer 0.61. 12/28/2012/24 Patient is a 55-year-old morbidly obese male with a BMI 53 history of congestive heart failure, presumed obstructive sleep apnea, patient presented emergency department on December 22 with a complaint shortness of breath patient was started on IV lasix and placed on BiPAP plan was to diurese the patient however patient was desaturating initial ABG showed CO2 67 be communicated with a channel partners adjusted BiPAP setting and after 2 hours patient was more somnolent and slow to respond, repeat ABG showed CO2 of 90 Dr. Renee channel partners came and saw the patient as patient symptoms were worsening and recommended to transfer the patient ICu and discuss the case with animal husbandry teacher, patient being diuresed, there is suspicion patient with positive COVID-19 being tested an isolated, bilateral lower extremity swelling lower extremity negative for DVT, stasis dermatitis, cellulitis being treated with Zosyn and vancomycin, patient states is feeling much better compared to yesterday not a short of breath, denies any fever or chills, eating his lunch. Patient seen by animal husbandry teacher and Dr. Renee pulmonology and appreciate 12/25 patient COVID test is negative, patient had difficult time wearing BiPAP last night and his beared prevented good seal and BIPAP kept beeping and he was not able to sleep, however patient is doing well is being diuresed with seen by channel partners and animal husbandry teacher his clinically stable will transfer patient out of ICU to IMU will continue to monitor and diurese the patient, patient will benefit from PT OT 12/26 patient again was not able to wear BIPAP as he is not able to tolerate being morbidly obese, patient was seen by channel partners placed on AVAPS mode currently, and [facility], patient is seen by fast food shift supervisor suspect patient has hypercarbic respiratory failure most likely 2/2 volume overload due to noncompliance with meds and dietary. patient had echo, EF is 70%, patient is being diuresed, will continue to monitory, patient is clinically stable, will transfer patient out of ICU to med-surg, will have PT/OT evaluate patient. 12/27 patient was transferred out of ICU yesterday to medical floor however patient was unable to wear BiPAP last and is quite short of breath patient was seen by channel partners recommending to place the patient on continuous BiPAP, transfer the patient to IMU, also yesterday evening patient kept tugging on his Wong, eventually Wong was removed and there was blood on the penis patient with CBI last night and hematuria has improved, will continue BiPAP and monitor this will also help auto diurese the patient will continue to monitor 12/28/20 Patient hematuria resolved with CBI however patient was requiring continuous BIPAP was transferred to IMU, continued IV lasiex to diurese the patien, patient remained clinically stable, seen by channel partners continued updraft and Pulmicort, patient is clinically stable, will have PT/OT worked with patient and further recommendation to follow. (2) Congestive heart failure: Qualifiers: Heart failure chronicity: unspecified Heart failure type: unspecified Qualified Code(s): I50.9 - Heart failure, unspecified Code(s): I50.9 - Heart failure, unspecified Status: Acute Assessment and Plan: Decompensated with generalized edema and acute on chronic SINDY lower ex
--- NOTE | 2020-12-29 16:16 | PM.IMPN ---
Progress Note: A&P Assessment and Plan (1) Acute on chronic respiratory failure with hypoxia and hypercapnia: Code(s): J96.21 - Acute and chronic respiratory failure with hypoxia; J96.22 - Acute and chronic respiratory failure with hypercapnia Status: Acute Assessment and Plan: With worsening lethargy and hypercapnia despite BiPAP therapy for [address] Renee and Dr Martinez input. BiPAP settings increased, moved to ICU. See HPI. Test for COVID by PCR. D-dimer 0.61. 12/29/20 16:16 12/24 Patient is a 55-year-old morbidly obese male with a BMI 53 history of congestive heart failure, presumed obstructive sleep apnea, patient presented emergency department on December 22 with a complaint shortness of breath patient was started on IV lasix and placed on BiPAP plan was to diurese the patient however patient was desaturating initial ABG showed CO2 67 be communicated with a data integrity specialist adjusted BiPAP setting and after 2 hours patient was more somnolent and slow to respond, repeat ABG showed CO2 of 90 Dr. Renee data integrity specialist came and saw the patient as patient symptoms were worsening and recommended to transfer the patient ICu and discuss the case with oil well pumper, patient being diuresed, there is suspicion patient with positive COVID-19 being tested an isolated, bilateral lower extremity swelling lower extremity negative for DVT, stasis dermatitis, cellulitis being treated with Zosyn and vancomycin, patient states is feeling much better compared to yesterday not a short of breath, denies any fever or chills, eating his lunch. Patient seen by oil well pumper and Dr. Renee pulmonology and appreciate 12/25 patient COVID test is negative, patient had difficult time wearing BiPAP last night and his beared prevented good seal and BIPAP kept beeping and he was not able to sleep, however patient is doing well is being diuresed with seen by data integrity specialist and oil well pumper his clinically stable will transfer patient out of ICU to IMU will continue to monitor and diurese the patient, patient will benefit from PT OT 12/26 patient again was not able to wear BIPAP as he is not able to tolerate being morbidly obese, patient was seen by data integrity specialist placed on AVAPS mode currently, and [facility], patient is seen by jr. java developer suspect patient has hypercarbic respiratory failure most likely 2/2 volume overload due to noncompliance with meds and dietary. patient had echo, EF is 70%, patient is being diuresed, will continue to monitory, patient is clinically stable, will transfer patient out of ICU to med-surg, will have PT/OT evaluate patient. 12/27 patient was transferred out of ICU yesterday to medical floor however patient was unable to wear BiPAP last and is quite short of breath patient was seen by data integrity specialist recommending to place the patient on continuous BiPAP, transfer the patient to IMU, also yesterday evening patient kept tugging on his Wong, eventually Wong was removed and there was blood on the penis patient with CBI last night and hematuria has improved, will continue BiPAP and monitor this will also help auto diurese the patient will continue to monitor 12/28/20 Patient hematuria resolved with CBI however patient was requiring continuous BIPAP was transferred to IMU, continued IV lasiex to diurese the patien, patient remained clinically stable, seen by data integrity specialist continued updraft and Pulmicort, patient is clinically stable, will have PT/OT worked with patient and further recommendation to follow. 12/29/2020 today patient remains clinically stable he is not requiring BiPAP all the time except at nighttime, patient is seen by seen by data integrity specialist and jr. java developer recommending continue present managed, as patient is not require BiPAP continuously will transfer the patient to medical floor, clinically stable will plan to discharge the patien
[2020-12-29] MEDS: ENOXAPARIN 60 MG/0.6 ML SYRINGE SUB-Q (18:19)
[2020-12-29] MEDS: ENOXAPARIN 80 MG/0.8 ML SYRINGE SUB-Q (18:19)
[2020-12-30] VITALS (16 sets, daily range): BP systolic 120–125; BP diastolic 47–84; PULSE 83–101; RESP 16–20; TEMP 36.3–36.6; O2SAT 85–97
[2020-12-30] MEDS: IPRATROPIUM BR 0.02% INH SOLN 0.5 MG/2.5 ML VIAL INHALATION (01:11)
[2020-12-30] MEDS: ALBUTEROL SULFATE NEB 2.5 MG/0.5 ML INH INHALATION (01:11)
[2020-12-30 05:58] LABS: Anion Gap 4 mmol/L (8-16); Blood Urea Nitrogen 27 mg/dL (9-20); Calcium 9.1 mg/dL (8.4-10.2); Carbon Dioxide 36 mmol/L (22-30); Chloride 99 mmol/L (98-107); Estimated CRCL calculation 70 ml/min; Estimated Glomerular Filt Rate 52; Glucose 114 mg/dL (75-110); Potassium 3.7 mmol/L (3.4-5.0); Sodium 139 mmol/L (137-145)
--- NOTE | 2020-12-30 06:40 | WPDUROPN2 ---
Progress Note: A&P Assessment and Plan (1) Gross hematuria: Code(s): R31.0 - Gross hematuria Status: Acute Assessment and Plan: Hematuria due to traumatic catheter removal has resolved. OK to remove catheter at anytime Subjective Subjective Date/Time Seen: 12/30/20 06:40 Comfortable, tolerating Wong catheter Review of Systems Cardiovascular: Cardiovascular: Denies chest pain, Denies lightheadedness, Denies palpitations and Denies dyspnea Respiratory: Respiratory: Denies dyspnea Gastrointestinal: Gastrointestinal: Denies diarrhea, Denies nausea and Denies vomiting Genitourinary: Genitourinary: Denies hematuria and Denies dysuria Endocrine: Endocrine: Denies palpitations Exam Const: General: no acute distress Resp: Effort & Inspection: normal respiratory effort GI: Inspection: non-distended GI Palp: No abdominal tenderness and No Guarding due to palpation present (GI) Auscultation: normal bowel sounds Objective Data Vital Signs Vital Signs: Vital Signs - 24 hr 12/29/20 08:00 12/29/20 08:16 12/29/20 08:24 Temperature 96.3 F L Pulse Rate 103 H 100 101 H Respiratory Rate 20 24 H Blood Pressure 149/77 H Pulse Oximetry 96 95 96 12/29/20 08:36 12/29/20 10:00 12/29/20 10:41 Temperature Pulse Rate 99 87 93 Respiratory Rate 20 Blood Pressure Pulse Oximetry 12/29/20 12:00 12/29/20 12:32 12/29/20 14:15 Temperature 98.6 F Pulse Rate 88 84 88 Respiratory Rate 22 H 20 Blood Pressure 145/95 H Pulse Oximetry 95 12/29/20 14:23 12/29/20 15:36 12/29/20 15:37 Temperature Pulse Rate 87 89 Respiratory Rate 20 16 Blood Pressure 153/93 H Pulse Oximetry 95 98 12/29/20 16:00 12/29/20 19:50 12/29/20 20:00 Temperature Pulse Rate 91 100 90 Respiratory Rate 20 16 Blood Pressure Pulse Oximetry 94 12/29/20 20:05 12/29/20 20:06 12/29/20 20:41 Temperature Pulse Rate 98 74 Respiratory Rate 20 Blood Pressure Pulse Oximetry 94 12/29/20 21:41 12/29/20 23:03 12/30/20 00:00 Temperature 97.6 F Pulse Rate 90 85 86 Respiratory Rate 16 Blood Pressure 127/81 Pulse Oximetry 94 96 12/30/20 01:14 12/30/20 02:38 12/30/20 04:06 Temperature Pulse Rate 99 95 93 Respiratory Rate 20 Blood Pressure Pulse Oximetry 94 Intake/Output Intake/Output: Intake & Output 12/27/20 12/28/20 12/29/20 12/30/20 23:59 23:59 23:59 23:59 Intake Total 1760 1810 1370 Output Total 5912 3898 2803 [facility] -[phone] -[phone] -1985 Meds/Results Medications: Active Medications Generic Name Dose Route Start Last Admin Trade Name Freq PRN Reason Stop Dose Admin Acetazolamide 500 mg 12/29/20 09:00 12/29/20 16:55 Acetazolamide Tab 250 Mg Tablet PO 01/01/21 09:01 500 mg BID SENTHIL Administration Albuterol 2.5 mg 12/23/20 14:00 12/30/20 01:11 Albuterol Sulfate Neb 2.5 Mg/0.5 Ml Inh INHALATION 2.5 mg Q6HRT SENTHIL Administration Alteplase, Recombinant 2 mg 12/27/20 09:08 12/27/20 09:36 Alteplase 2 Mg Vial (Cathflo) IV PUSH 2 mg ONCE PRN Administration Line Occlusion Alteplase, Recombinant 2 mg 12/27/20 09:12 12/27/20 09:36 Alteplase 2 Mg Vial (Cathflo) IV PUSH 2 mg ONCE PRN Administration Line Occlusion Aspirin 81 mg 12/23/20 08:00 12/29/20 10:36 Aspirin 81 Mg Chewable Tablet PO 81 mg DAILY@0800 SENTHIL Administration Budesonide 1 mg 12/29/20 08:00 12/29/20 19:43 Budesonide Respule Neb 0.5 Mg/2 Ml Amp INHALATION 1 mg Q12HRT SENTHIL Administration Enoxaparin Sodium 80 mg 12/29/20 18:00 12/29/20 18:19 Enoxaparin 80 Mg/0.8 Ml Syringe SUB-Q 80 mg Q24H SENTHIL Administration Enoxaparin Sodium 60 mg 12/29/20 18:00 12/29/20 18:19 Enoxaparin 60 Mg/0.6 Ml Syringe SUB-Q 60 mg Q24H SENTHIL Administration Furosemide 40 mg 12/30/20 09:00 Furosemide Inj 40 Mg/4 Ml Vial IV PUSH DAILY SENTHIL Ipratropium [place] 0.5 mg 12/29/20 08:00 12/30/20 01:1
[2020-12-30 07:42] LABS: Alveolar/Arterial O2 Gradient 21.5 mmHg; Base Excess ABG 5.2 mEq/l (+/-2.0); Carboxyhemoglobin 1.6 % THb (0-2.0); Device ROOM AIR; Fractional Inspired Oxygen 21 %; Methemoglobin ABG 0.3 %THb (0-1.5); Modified Allen's Test Pass; Oxygen Content ABG 21.7 %vol (16.0-22.0); Oxygen Saturation ABG 87.9 % (95.0-100.0); Oxyhemoglobin 87.3 % THb (90.0-100.0); PCO2 ABG 59.6 mmHg (35.0-45.0); PO2 ABG 56.9 mmHg (80.0-100.0); PO2 FiO2 Ratio Arterial Blood 2.71 %; Reduced Hemoglobin 10.8 %THb (0-5.0); Site Drawn RIGHT RADIAL; Total Hemoglobin 17.7 g/dL (12.0-18.0); pH ABG 7.361 (7.350-7.450)
[2020-12-30] MEDS: ASPIRIN 81 MG CHEWABLE TABLET PO (09:12)
[2020-12-30] MEDS: METOPROLOL TARTRATE 12.5 MG TABLET PO (09:12)
[2020-12-30] MEDS: lisinopriL 20 MG TABLET 40 MG PO (09:12)
[2020-12-30] MEDS: FUROSEMIDE INJ 40 MG/4 ML VIAL IV PUSH (09:12)
[2020-12-30] MEDS: MAGNESIUM OXIDE 200 MG TABLET PO (09:12)
[2020-12-30] MEDS: CENTRAL LINE FLUSH 10 ML IV PUSH (09:13)
[2020-12-30] MEDS: acetaZOLAMIDE TAB 250 MG TABLET 500 MG PO (09:13)
[2020-12-30] MEDS: TOLNAFTATE 1% POWDER 45 GM BTL 1 APPLIC TOPICAL (09:14)
--- NOTE | 2020-12-30 09:45 | PCNWS ---
Weekly nutritional screen. Patient is tolerating current diet with adequate intake consuming 100% of all meals. No weight loss reported. No nutritional needs at this time.
--- NOTE | 2020-12-30 09:47 | PM.PNPUL ---
Progress Note: A&P Assessment and Plan (1) COPD (chronic obstructive pulmonary disease): Code(s): J44.9 - Chronic obstructive pulmonary disease, unspecified Status: Acute Assessment and Plan: - all nebulizers discontinued - Spiriva 18 mcg 1 puff daily started this morning - Symbicort 160/4.5 mcg 2 puffs Q12h via spacer started this morning - home oxygen evaluation - diamox will be discontinued - can discharge home today from pulmonary perspective (2) Obesity hypoventilation syndrome: Code(s): E66.2 - Morbid (severe) obesity with alveolar hypoventilation Status: Acute Assessment and Plan: Continue AVAPS noninvasive ventilation at home with his current settings: AVAPS mode with rate 20, TV 500, EPAP8, Inspire min 9, inspire max 30, rise 5, I time 1.00, 40% Lasix dose decreased (3) LIDIA (obstructive sleep apnea): Code(s): G47.33 - Obstructive sleep apnea (adult) (pediatric) Status: Acute (4) Edema, peripheral: Code(s): R60.9 - Edema, unspecified Status: Acute (5) Cellulitis: Code(s): L03.90 - Cellulitis, unspecified Status: Acute Assessment and Plan: the patient grew stenotrophomonas maltophilia from skin culture. He has clinical evidence of cellulitis. I would recommend discontinuing Levaquin, vancomycin and Zosyn. I would recommend starting him on renally dosed Bactrim for 10 days Subjective Date/time seen: 12/30/20 09:47 Interval history: Feeling better, mental status has improved. Claims he wore his Trilogy NIV all night. ABG this morning has improved back to baseline Review of Systems Review of Systems: All systems reviewed & are unremarkable except as noted in HPI and below Exam Const: General: cooperative, healthy appearing and in distress Nutritional Appearance: obese morbidly obese Orientation/consciousness: oriented to person, oriented to place and oriented to time Other: Lethragic today, speech is normally somewhat slow and garbled HENMT: Head: normal to inspection Ears: hearing grossly normal bilaterally Mouth: Yes Normal oral and palatal mucosa present Eyes: General: appearance normal, both eyes and all related structures Neck: Neck: normal visual inspection and no JVD Chest: Chest palpation & inspection: normal inspection of the chest Resp: Effort & Inspection: abnormal respiratory effort Auscultation: no crackles, no rales, no rhonchi, no wheezes and diminished lung sounds Cardio: Jugular venous distension: no JVD Rate: regular rate GI: Inspection: normal to inspection and distended Auscultation: normal bowel sounds Skin: General skin exam: normal color, rashes and/or lesions noted and erythema Neuro: General: oriented to person, oriented to place and oriented to time Other: lethargic Extrem: General: normal to inspection and edema Psych: Appearance: grossly normal Mental Status: mental status grossly abnormal Objective Data Vital Signs Vital Signs: Vital Signs - 24 hr 12/29/20 10:00 12/29/20 10:41 12/29/20 12:00 Temperature Pulse Rate 87 93 88 Respiratory Rate Blood Pressure Pulse Oximetry 12/29/20 12:32 12/29/20 14:15 12/29/20 14:23 Temperature 37.0 C Pulse Rate 84 88 87 Respiratory Rate 22 H 20 20 Blood Pressure 145/95 H Pulse Oximetry 95 12/29/20 15:36 12/29/20 15:37 12/29/20 16:00 Temperature Pulse Rate 89 91 Respiratory Rate 16 Blood Pressure 153/93 H Pulse Oximetry 95 98 12/29/20 19:50 12/29/20 20:00 12/29/20 20:05 Temperature Pulse Rate 100 90 98 Respiratory Rate 20 16 20 Blood Pressure Pulse Oximetry 94 12/29/20 20:06 12/29/20 20:41 12/29/20 21:41 Temperature 36.4 C Pulse Rate 74 90 Respiratory Rate 16 Blood Pressure 127/81 Pulse Oximetry 94 94 12/29/20 23:03 12/30/20 00:00 12/30/20 01:14 Temperature Pulse Rate 85 86 99 Respiratory Rate 20 Blood Pressure Pulse Oximetry 96 12/30/20
--- NOTE | 2020-12-30 09:52 | PCNSR ---
On 12/30/20, the student, Gisela Enriquez, provided care and completed [facility] documentation on this patient. I have reviewed the student's documentation and agree with the findings.
--- NOTE | 2020-12-30 11:16 | HOMEO2EVAL ---
Home Oxygen Evaluation RC: Home Oxygen (O2) Evaluation Start: 12/30/20 09:07 Freq: ONCE Status: Active Protocol: RPE Activity Type Activity Date Activity User E-Sign Co-Sign Detail Recorded Client Recorded Date Recorded By Document 12/30/20 11:00 ALEISHA [email or web address] 12/30/20 11:16 ALEISHA Document 12/30/20 11:05 ALEISHA [email or web address] 12/30/20 11:16 ALEISHA Document 12/30/20 11:06 ALEISHA [email or web address] 12/30/20 11:16 ALEISHA Document 12/30/20 11:08 ALEISHA [email or web address] 12/30/20 11:16 ALEISHA Document 12/30/20 11:15 ALEISHA [email or web address] 12/30/20 11:16 ALEISHA 12/30/20 12/30/20 12/30/20 11:00 11:05 11:06 Home O2 Evaluation Test Phase Resting Exercise Exercise Oxygen Delivery Room Air Room Air Nasal Cannula Oxygen Flow Rate (L/min) 1 Pulse Oximetry (90-100 %) 90 85 L 86 L Pulse Rate (60-100 beats/min) 89 101 H Activity Tolerance Fair Home Oxygen Evaluation Comments Used walker in room Treatment Charges O2 Evaluation - Inpatient 12/30/20 12/30/20 11:08 11:15 Home O2 Evaluation Test Phase Exercise Resting Oxygen Delivery Nasal Cannula Room Air Oxygen Flow Rate (L/min) 2 Pulse Oximetry (90-100 %) 89 L 92 Pulse Rate (60-100 beats/min) Activity Tolerance Home Oxygen Evaluation Comments Pt requires 2 L with exertion Treatment Charges
--- NOTE | 2020-12-30 11:19 | PCRCNOTE ---
will set up with [facility] as well for home O2 needs at 2 L with exertion. Will deliver tank to room for d/c home. All paperwork/order faxed to [facility].
--- NOTE | 2020-12-30 11:51 | PM.PNCARD ---
Progress Note: A&P Additional Plan 55-year-old man with: Obesity hypoventilation sleep apnea syndrome with secondary pulmonary hypertension and right heart failure. Patient is stable enough to be discharged. I would probably discharge him on furosemide 40 mg per day increasing somewhat from the 20 mg dosage that was on his home medication list. Otherwise no specific cardiac recommendations to make and he is fine in my opinion for be discharged today. Follow-up should be with his PCP and signal intelligence/electronic warfare. Ben Wright MD [facility] Subjective Date/time seen: 12/30/20 11:51 Interval history: Follow-up for obesity/hypoventilation syndrome, right left heart failure. Echo 12/25: LV hyperdynamic, estimated at >70%, moderate LVH, diastolic dysfunction, right atrial and right ventricular enlargement with right ventricular hypokinesis, mild TR, severe pulmonary hypertension RVSP 62 mmHg.. 12/23 this is a 55-year-old man with a history of morbid obesity, hypertension, congestive heart failure who presented to the emergency room on 12/22 with worsening lower extremity swelling and pain. Patient signed out of the hospital 2 days previously from the ER with positive troponins and lower extremity edema. Patient is now lethargic and I am unable to hand obtain a history. Patient was admitted to the floor with a blood gas of 7.35/68/821 3 L. this morning patient he came lethargic and was empirically placed on BiPAP and after 2 hours of BiPAP 12/5 his blood gas was 7.24/91/64 on 30% FiO2. I went and evaluated the patient and he remained very lethargic you would open his eyes to sternal rub. I recommended transfer to the ICU and empirically placed him on BiPAP 25/8 in 40%. His saturations at the time were 97%. In ICU wore BiPAp an dmental status improved, tolerated break from BiPAP for dinner. LE Dopplers negative. Flu swab negative. 12/24 Currently on BiPAP, following simple commands, ABG on BiPAP 22/8 and 40% 7.34/71/108. In 2650/out 2650 on acetazolamide. 12/25 SARS-CoV-2 negative. Patient wore BiPAP intermittantly as high leak with pressures and rocha and alarms were waking him. More awake on high flow nasal cannula 35L and 60% with sats 99%. On entering room patient sleeping with witnessed obstructive events with aurousals and desat to 97%. 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 Lasix 40 IV BID started. Cr 1.10. Minus 2760. OOB to chair later in day. Shaved his rocha. 12/26 Did not tolerate BiPAP (leak and pressures too high) so placed on AVAPS mode with rate 20, TV 500, EPAP8, Inspire min 9, inspire max 30, rise 5, I time 1.00, 40%. He rips off machine at times and refuses to wear at times but today he tells me he will continue to try and use the machine. ABG on high flow NC 35L and 45% was 7.33/66/53 this morning. Cr 1.30 and lasix decreased to 20 IV Q day. Minus 3680. Home unit set up at AVAPS AE RR 18, TV 450, Min EPAP 5, max EPAP14, PS min 5, PS max 25, max pressure 35, I time 1.0, rise 5. 12/27 Refused to wear home AVAPS overnight, pulled out hernandez, IVs and takes off oxygen. On 5 L with sats 96% throughout night. This morning he was in chair on room air with obvious obstructive respiratory events and sats 50's. Placed him on AVAPS AE with 10 L bleed in and sats increased to 91-96%. He is lethargic but following simple commands. DC lasix as appears to be autodiuresing. 12/27/2020: Patient offers no cardiac complaints. The above several days notes have been reviewed. He is now in the IMU appears to be alert and lucid. Has very poor insight into the pathology as it is described above 12/28/2020: Diuresed 500 cc yesterday. Now on 5 L nasal prong oxygen, was on BiPAP through the night. Says unable to sleep, spent the night in his recliner, feels very tired, still w/ lots of edema. Falls asleep talking to me. Tele = NSR. Date of service
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
[2020-12-30 14:17] LABS: Anion Gap 5 mmol/L (8-16); Blood Urea Nitrogen 29 mg/dL (9-20); Calcium 9.5 mg/dL (8.4-10.2); Carbon Dioxide 33 mmol/L (22-30); Chloride 100 mmol/L (98-107); Estimated CRCL calculation 65 ml/min; Estimated Glomerular Filt Rate 48; Glucose 157 mg/dL (75-110); Potassium 3.6 mmol/L (3.4-5.0); Sodium 138 mmol/L (137-145)
== END 2020-12-30 16:45 | disposition home health service (06) | DRG 194 ==
LOC: ANHED 22:35 → ANH3MED 23:35 → ANH2MED 12-30 12:09 → ANH3MED 01-01 09:54 → ANHICU 01-01 09:54 → ANHIMU 01-01 09:54
PROVIDERS: Family Medicine; Internal Medicine; Internal Medicine Cardiovascular Disease; Internal Medicine Critical Care Medicine; Internal Medicine Pulmonary Disease; Admitting Provider Family Medicine; Emergency Provider Emergency Medicine; PCP Nurse Practitioner Family; Visit Provider Physician Assistant
DX: I11.0 Hypertensive heart disease with heart failure (principal); J96.21 Acute and chronic respiratory failure with hypoxia; J96.22 Acute and chronic respiratory failure with hypercapnia; I50.33 Acute on chronic diastolic (congestive) heart failure; Z20.822 Contact with and (suspected) exposure to COVID-19; I27.20 Pulmonary hypertension, unspecified; E66.2 Morbid (severe) obesity with alveolar hypoventilation; Z68.43 Body mass index [BMI] 50.0-59.9, adult; J44.9 Chronic obstructive pulmonary disease, unspecified; R77.8 Other specified abnormalities of plasma proteins; S81.802A Unspecified open wound, left lower leg, initial encounter; S81.801A Unspecified open wound, right lower leg, initial encounter; R21 Rash and other nonspecific skin eruption; F17.210 Nicotine dependence, cigarettes, uncomplicated; E78.5 Hyperlipidemia, unspecified; R79.89 Other specified abnormal findings of blood chemistry; L03.90 Cellulitis, unspecified; S37.39XA Other injury of urethra, initial encounter; R31.0 Gross hematuria; R33.8 Other retention of urine; X58.XXXA Exposure to other specified factors, initial encounter; Z79.899 Other long term (current) drug therapy; Z86.718 Personal history of other venous thrombosis and embolism
CPT/HCPCS: 36415; 36569; 36600; 71045; 80048; 80053; 80061; 80202; 80307; 81001; 82140; 82375; 82805; 82948; 83036; 83050; 83605; 83735; 83880; 84100; 84443; 84484; 85025; 85027; 85380; 85610; 85730; 86140; 87040; 87070; 87077; 87186; 87205; 87804; 93005; 93970; 93971; 94002; 94003; 94618; 94640; 94660; 96374; 96375; 97110; 97116; 97162; 97165; 97530; 97535; 99285; A9270; C1751; C8929; C9803; G0378; G0379; J0131; J0360; J1120; J1200; J1650; J1940; J1956; J2543; J2997; J3370; P9047; Q9957; U0003; U0005